=== PATIENT | female | born 1960 | race Caucasian/White ===

== ENCOUNTER 2022-02-14 07:53 | Outpatient (CLI) | payer BC, SELFPAY ==
--- NOTE | 2022-02-14 08:02 | XR_ITS ---
WS: [id number] Right knee, AP and lateral views, 02/14/2022 Clinical Data: RIGHT KNEE PAIN Comparison: None. Findings: There is medial joint compartment narrowing with spurring of the medial femoral condyle and the media l tibial plateau. The posterior right patella shows spurring and there is an anterior superior spur. There are no fractures or dislocations. The soft tissues are normal. XR/XR knee RT 1-2V [id number] Impression: Mild osteoarthritis of the right knee. Kellgren-Peter Classification: grade 2 (minimal): definite osteophytes and p ossible joint space narrowing
== END 2022-02-14 07:54 | disposition home or self-care (01) ==
LOC: RAD 07:58
PROVIDERS: Visit Provider Family Medicine
DX: M17.11 Unilateral primary osteoarthritis, right knee (principal)
CPT/HCPCS: 73560

== ENCOUNTER 2022-03-08 16:36 | Outpatient (CLI) | payer BC, SELFPAY ==
--- NOTE | 2022-03-08 16:50 | MR_ITS ---
WS: [id number] MRI RIGHT KNEE HISTORY: MEDIAL COLLATERAL LIGAMENT INSTABILITY, KNEE PAIN RIGHT COMPARISON: Knee radiograph 02/14/2022 Anterior cruciate ligament: Mild striations increased signal in the proximal ACL. No full-thickness t ear. Posterior cruciate ligament: Intact. Medial collateral ligament: Small amount of fluid surrounds the MCL. There is no tear. Mild displacem ent from the joint line by an extruded meniscus. Posterior lateral corner structures: Intact. Medial menisci: Complex tear posterior horn. There is abnormal signal throughout a large portion of t he meniscus including towards the meniscal root and the free edge. Abnormal signal extends also to th e superior articular surface. Fraying along the surfaces of the meniscus. The meniscus is extruded fr om the joint line and extends superior to the joint line. There is abnormal signal also in the body o f the meniscus. Anterior horn also contains increased signal and is extruded from the joint line. Lateral meniscus: Suspect radial tear mid body of the meniscus. Extensor mechanism: Distal quadriceps tendon and patellar tendons are intact. Fluid and soft tissue: Small amount of fluid in the suprapatellar bursa. There is a moderate-sized Ba ker's cyst. The Cobian's cyst extends inferiorly and also medial to the femoral condyle. Osseous and articular structures: Patellofemoral compartment: Mild narrowing of the joint space. Thinning and fissuring of the cartilag e. No marrow edema. Medial compartment: Severe narrowing of the medial compartment. There is bone upon bone with a menisc al extrusion. Marginal osteophytes. Marrow edema along the anterior tibial plateau. Additional subcho ndral cystic changes along the posterior horn medial meniscus with adjacent chondromalacia. Loss of c artilage in the medial compartment. Lateral compartment: Moderate narrowing lateral compartment. Several small complete cartilage defects are noted along the weightbearing surface of the femoral condyle. There is moderate thinning and fis suring of the cartilage along the tibial plateau. Small marginal osteophytes. No fracture or marrow e faith. MR/MR knee RT wo con* [id number] IMPRESSION: 1. Complex tear posterior horn medial meniscus with involvement of the menisca l root, body and free edge. Meniscus is extruded from the joint line and extend s into the superior recess. 2. Anterior horn medial meniscus with abnormal signal extruded from the joint . 3. Suspect radial tear mid body lateral meniscus. 4. Large Cobian's cyst. 5. Severe narrowing medial compartment with bone upon bone, meniscal tears, os teophytes and near complete loss of cartilage. Additional chondromalacia with s ubchondral edema posterior horn medial femoral condyle. 6. Several small complete cartilage defects involving the weightbearing surfac e lateral femoral condyle with thinning along the lateral tibial plateau. 7. Mild MCL sprain with displacement from the joint line osteophytes and menis giselle extrusion.
== END 2022-03-08 16:37 | disposition home or self-care (01) ==
PROVIDERS: PCP Family Medicine; Visit Provider Family Medicine
DX: M23.8X9 Other internal derangements of unspecified knee (principal); M25.561 Pain in right knee; S83.241A Other tear of medial meniscus, current injury, right knee, initial encounter; X58.XXXA Exposure to other specified factors, initial encounter; M71.21 Synovial cyst of popliteal space [Baker], right knee
CPT/HCPCS: 73721

== ENCOUNTER → 2022-09-19 11:25 | Outpatient (BNVA) | payer BC, SELFPAY | PROVIDERS: PCP Family Medicine; Visit Provider Clinical Nurse Specialist Adult Health | DX: R10.9 Unspecified abdominal pain (principal); R10.11 Right upper quadrant pain; R11.0 Nausea | CPT/HCPCS: 80053; 82150; 83690 ==

== ENCOUNTER → 2022-09-20 07:55 | Outpatient (BNVA) | payer BC, SELFPAY | PROVIDERS: PCP Family Medicine; Visit Provider Clinical Nurse Specialist Adult Health | DX: R10.11 Right upper quadrant pain (principal); R11.0 Nausea | CPT/HCPCS: 80074 ==

== ENCOUNTER 2022-09-30 10:44 | Outpatient (CLI) | payer BC, SELFPAY ==
--- NOTE | 2022-09-30 10:45 | US_ITS ---
WS: [id number] Abdomen ultrasound, 09/30/2022 Clinical Data: RUQ and LUQ pain, worse on right Comparison: None. Findings: The pancreas shows no cyst, pseudocyst or evidence of pancreatitis. The liver shows no cysts, masses or dilated intrahepatic ducts. The portal vein shows normal flow. The gallbladder has no stones or sludge. The wall measures 0.3 cm with no pericholecystic fluid. The common bile duct is 0.5 cm and no intraductal abnormalities are noted. The right kidney is 11.1 cm. No cysts, masses or hydronephrosis is seen. The left kidney is 11.7 cm. No cysts, masses or hydronephrosis is seen. The abdominal aorta is not dilated and the inferior vena cava has normal flow. No vascular abnormalit ies are seen. The spleen measures 8.9 cm and there are no intrasplenic masses or capsular abnormalities. US/US abdomen complete* [id number] Impression: Negative abdomen ultrasound.
== END 2022-09-30 10:45 | disposition home or self-care (01) ==
PROVIDERS: PCP Family Medicine; Visit Provider Surgery
DX: R10.11 Right upper quadrant pain (principal)
CPT/HCPCS: 76700

== ENCOUNTER → 2022-10-01 16:27 | Outpatient (BNVA) | payer BC, SELFPAY | PROVIDERS: PCP Family Medicine; Visit Provider Orthopaedic Surgery | DX: M17.0 Bilateral primary osteoarthritis of knee (principal) | CPT/HCPCS: 73560; 73565 ==

== ENCOUNTER 2022-10-11 06:00 | Outpatient (CLI) | payer BC, SELFPAY | END 2022-10-11 06:01 | LOC: SPT 11-14 07:52 | PROVIDERS: PCP Family Medicine; Visit Provider Podiatrist Foot & Ankle Surgery | DX: Z46.89 Encounter for fitting and adjustment of other specified devices (principal); M25.572 Pain in left ankle and joints of left foot | CPT/HCPCS: 97760; L4361 ==

== ENCOUNTER 2022-10-11 08:40 | Emergency (ER) | payer BC, SELFPAY ==
[2022-10-11 08:50] VITALS: BP 152/92; PULSE 56; RESP 14; TEMP 36.8; O2SAT 98; BMI 35.2
--- NOTE | 2022-10-11 09:06 | XR_ITS ---
WS: [id number] Exam: XR ankle LT min 3V* [id number] Date/Time of Exam: 10/11/2022 9:20 AM Reason For Exam: trauma No acute fracture or dislocation. The ankle mortise is preserved. Unremarkable soft tissues. XR/XR ankle LT min 3V* [id number] IMPRESSION: 1. Negative left ankle.
--- NOTE | 2022-10-11 09:07 | XR_ITS ---
WS: [id number] Exam: XR tibia fibula LT 2V [id number] Date/Time of Exam: 10/11/2022 9:20 AM Reason For Exam: pain No acute fracture or dislocation. Moderately advanced degenerative change at the knee. Normal soft ti ssues. XR/XR tibia fibula LT 2V [id number] IMPRESSION: 1. No fracture or dislocation.
--- NOTE | 2022-10-11 10:02 | PC.NURSE ---
Patient referred to podiatry, taken by ER staff at this time.
[2022-10-11 10:03] VITALS: BP 139/82; PULSE 78; RESP 16; O2SAT 98
--- NOTE | 2022-10-11 10:15 | PC.SOCIAL ---
Addendum entered by June Streeter 10/24/22 11:55: Patient had a follow up appointment scheduled for 10.11.22 with podiatry - patient did attend appointment. Original Note: Podiatry Referral Referral to podiatry sent for scheduling. [facility] podiatry will contact patient with appt. date/time.
--- NOTE | 2022-10-19 06:44 | W.ED.EXTPRO ---
HPI - Extremity Problem General: Chief complaint: Extremity Injury, Lower Stated complaint: left leg pain Time Seen by Provider: 10/11/22 08:43 Source: patient Mode of arrival: ambulatory History of Present Illness: 61-year-old female reports left tibial pain. She tripped in her home yesterday felt and heard a popping sensation she concerned she may have fractured her tibia she has been ambulatory on it she did not actually fall did not strike her head there is no loss consciousness denies any other injuries. MD Complaint: extremity pain Onset (ago): day(s) (1) Pain Consistency: constant Location: left and lower extremity (Tibia) Quality: sharp Radiation: distal Relieving factors: nothing Exacerbating factors: nothing Associated symptoms: Deny chest pain, fever(s) or rash Review of Systems Const: Denies: fever(s), chills, body aches, change in appetite, fatigue or malaise ENMT: Denies: throat pain, ear or mastoid pain, nasal discharge or nasal congestion Card: Denies: chest pain, edema, dyspnea on exertion or orthopnea Resp: Denies: dyspnea, productive cough or non-productive cough GI: Denies: abdominal pain, nausea, vomiting, hematemesis, coffee ground emesis, diarrhea, constipation, bloating, hematochezia or melena : Denies: flank pain, difficulty voiding, dysuria, urinary frequency or urinary urgency Skin/Breast: Denies: rash or pruritus PFSH ED PFSH: Medical History Acute [place] 2010 Degenerative disc disease Endometriosis ovarian cysts Gastritis Hiatal hernia Hyperlipemia Hypertension Mild intermittent asthma Mitral valve prolapse Shingles 2010 Surgical History History of back surgery 2016 History of esophagogastroduodenoscopy (EGD) History of total abdominal hysterectomy and bilateral salpingo-oophorectomy 2004 due to endometriosis. Had her right ovary removed due to ovarian cysts Hx of appendectomy Hx of section Hx of colonoscopy with polypectomy Hx of neck surgery 2014 Family History Mother CAD (coronary artery disease) Social History (Reviewed 10/19/22 @ 06:49 by DARSHANA Augustine Smoking and tobacco status: never smoked Alcohol intake: current Alcohol intake frequency: holidays/special occasions only Physical Exam Const: COMMON NORMALS: no acute distress GENERAL APPEARANCE: cooperative and comfortable ORIENTATION/CONSCIOUSNESS: Yes awake, Yes oriented to person, Yes oriented to place and Yes oriented to time HENMT: COMMON NORMALS: normocephalic, atraumatic and hearing grossly normal bilaterally HEAD & SCALP: normocephalic and atraumatic Resp: COMMON NORMALS: normal respiratory effort, No retractions, No use of accessory muscles and clear to auscultation bilaterally AUSCULTATION: clear to auscultation bilaterally Cardio: COMMON NORMALS: regular rate, regular rhythm and No murmurs present (Cardio) RATE: regular rate RHYTHM: regular rhythm Extremity: COMMON NORMALS: normal to inspection, capillary refill normal, no clubbing, cyanosis or edema, no calf tenderness and no pedal edema Neuro: SENSORIUM/ORIENTATION: Yes oriented to person, Yes oriented to place and Yes oriented to time Skin: COMMON NORMALS: no rashes or lesions noted GENERAL SKIN EXAM: no rashes or lesions noted Course Vital Signs: Vital signs: Vital Signs Temperature 98.2 F 10/11/22 08:50 Pulse Rate 78 10/11/22 10:03 Respiratory Rate 16 10/11/22 10:03 Blood Pressure 139/82 10/11/22 10:03 Pulse Oximetry 98 10/11/22 10:03 Oxygen Delivery Me thod 10/11/22 08:50 MDM - Extremity (Nontraumatic) Medical Decision Making No acute fracture on x-ray. Symptoms likely secondary to sprain and soft tissue injury anti-inflammatories as needed rest ice follow-up with primary care if not improving. On exam it appears more of an ankle injury than JVM. Rest elevate anti-inflammatories follow-up as needed Lab Data Radiology Impressions Ankle X-Ray 10/11/22 09:06 IMPRESSION: 1. Negative left ankle. Tibia/Fibula X-Ray 10/11/22 09:07 IMPRESSION: 1. No fracture or dislocation. Discharge Plan Discharge Patient Disposition: Home Clinical Impression: Ankle sprain and strain Condition: Stable Prescriptions: New diclofenac sodium 75 mg tablet,delayed release (DR/EC) 75 mg PO Q12H PRN (Reason: pain) Qty: 20 0RF No Action atenolol 50 mg tablet 50 mg PO QAM atorvastatin [Lipitor] 20 mg tablet 20 mg PO QAM levothyroxine [Levoxyl] 150 mcg tablet 150 mcg PO QAM ondansetron 4 mg tablet,disintegrating 4 mg PO Q8H PRN (Reason: nausea and vomiting) Qty: 30 0RF (DME) cam boot See Rx Instructions .Route .MEDSUPPLY Qty: 1 0RF Rx Instructions: As directed cyclobenzaprine 10 mg tablet 10 mg PO Q12H 7 Days Qty: 14 0RF Rx Instructions: Take one tablet by mouth every 12 hours as needed for muscle spasms montelukast [Singulair] 10 mg tablet 10 mg PO QAM levalbuterol tartrate 45 mcg/actuation HFA aerosol inhaler 2 inh inhalation Q6H PRN (Reason: Shortness Of Breath) omeprazole 20 mg capsule,delayed release(DR/EC) 20 mg PO QAM multivitamin Tablet 1 tab PO DAILY Advair Diskus 250-50 mcg/dose Blister With Device 1 inh INHALATION BID PRN (Reason: unknown) aspirin 325 mg Tablet 325 mg PO QAM Vitamin B-12 1,000 mcg Tablet 1,000 mcg PO QAM Tylenol Arthritis 650 mg Tablet Extended Release 1,950 mg PO BEDTIME Fiber (calcium polycarbophil) 625 mg Tablet 1,250 mg PO QAM Advil 200 mg Tablet 600 mg PO Q6H PRN (Reason: Pain) Discharge Orders: Discharge ED (Routine); Ordered 10/11/22 Ordered By: Gus Larios Referrals: Christiano Miller MD [Primary Care Provider] - Discharge Diet: Usual diet Discharge Activity: Limit activity as instructed Coding Level of Care Code ED Newspaper Publisher for Chg Joshua
== END 2022-10-11 10:05 | disposition home or self-care (01) ==
PROVIDERS: Emergency Provider Family Medicine; PCP Family Medicine
DX: S93.402A Sprain of unspecified ligament of left ankle, initial encounter (principal); W01.0XXA Fall on same level from slipping, tripping and stumbling without subsequent striking against object, initial encounter
CPT/HCPCS: 73590; 73610; 99283

== ENCOUNTER 2022-10-24 11:53 | Outpatient (CLI) | payer BC, SELFPAY | END 2022-10-24 11:54 | disposition home or self-care (01) | LOC: SPT 11:54 | PROVIDERS: PCP Family Medicine; Visit Provider Podiatrist Foot & Ankle Surgery | DX: Z46.89 Encounter for fitting and adjustment of other specified devices (principal); S93.402D Sprain of unspecified ligament of left ankle, subsequent encounter; X58.XXXD Exposure to other specified factors, subsequent encounter; M25.572 Pain in left ankle and joints of left foot | CPT/HCPCS: 80061; 84443; 97760; L1902 ==

== ENCOUNTER 2022-11-20 14:51 | Outpatient (CLI) | payer BC, SELFPAY ==
--- NOTE | 2022-11-20 15:01 | MM_ITS ---
WS: [email or web address] BILATERAL 3D TOMOSYNTHESIS DIGITAL SCREENING MAMMOGRAPHY WITH CAD CLINICAL INFORMATION: SCREENING HISTORY: Screening mammogram. No current complaints. COMPARISON: 2020 TECHNIQUE: Bilateral CC and MLO views. FINDINGS: Scattered fibroglandular densities bilaterally. No suspicious focal mass, asymmetry, calcifications, or architectural distortion. No evidence of malignancy. A few incidental punctate calcifications. MM/[place] [id number] IMPRESSION: BI-RADS: 2-Benign FOLLOW UP: 1 Year Follow-up Recommend return to annual screening mammography.
== END 2022-11-20 14:52 | disposition home or self-care (01) ==
LOC: RAD 14:54
PROVIDERS: PCP Family Medicine; Visit Provider Clinical Nurse Specialist Adult Health
DX: Z12.31 Encounter for screening mammogram for malignant neoplasm of breast (principal)
CPT/HCPCS: 77063; 77067

== ENCOUNTER 2022-11-29 07:36 | Outpatient (CLI) | payer BC, SELFPAY ==
--- NOTE | 2022-11-29 08:00 | NM_ITS ---
WS: [email or web address] NUCLEAR MEDICINE HIDA SCAN CLINICAL INFORMATION: abdominal pain TECHNIQUE: Following intravenous administration of 7.7 mCi of technetium 99m mebrofenin, images of th e abdomen were obtained over the course of 60 minutes. Next, gallbladder ejection fraction was determ ined by obtaining preprandial and one-hour postprandial images of the gallbladder following oral yao stion of Ensure. COMPARISON: None. FINDINGS: Normal hepatic uptake at 5 minutes. Hepatomegaly. Enlarged RIGHT hepatic lobe. Gallbladder is visuali zed by 10 minutes. No evidence of acute cholecystitis. Normal common bile duct and small bowel activi ty. Gallbladder ejection fraction 80% within normal limits. No evidence of chronic cholecystitis. NM/NM hepatobiliary w phar* [id number] IMPRESSION: 1. No evidence of acute or chronic cholecystitis. 2. Gallbladder ejection fraction 80% within normal limits.
== END 2022-11-29 07:37 | disposition home or self-care (01) ==
LOC: RAD 07:41
PROVIDERS: PCP Family Medicine; Visit Provider Surgery
DX: R10.11 Right upper quadrant pain (principal)
CPT/HCPCS: 78227; A9537

== ENCOUNTER 2022-12-06 08:11 | Day surgery (SDC) | payer BC, SELFPAY ==
[2022-12-03 12:33] VITALS: BMI 34.4
[2022-12-06 08:40] VITALS: BP 175/113; PULSE 87; RESP 18; TEMP 36.1; O2SAT 96
[2022-12-06] MEDS: sodium chloride 0.9% 1,000 ML 30 ML IV (08:49)
--- NOTE | 2022-12-06 08:59 | ANES.PREANE2 ---
Pre-Anesthetic Assessment Height/Weight: Height 1.7 m Weight 99.79 kg Temp Pulse Resp BP Pulse Ox O2 Del Method 97.0 F L 87 18 175/113 96 12/06/22 08:40 12/06/22 08:40 12/06/22 08:40 12/06/22 08:40 12/06/22 08:40 12/06/22 08:40 Preop Diagnosis: h/o polyps abdominal pain. Operation Date: 12/06/22 09:45 Proposed Procedures p 34654 egd, 22605 colon Z86.010,R10.9(Not Applicable) - Reggie Martinez DO s Colonoscopy(Not Applicable) - Reggie Martinez DO Familial anesthetic complications: patient reports propofol causing N/V H/A. Discussed sedation alternatives with patient patient reports she previously recieved propofol with antiemetics and seemed to do okay. Last intake: Intake Last Liquid Date 12/05/22 Last Liquid Time 17:00 Last Solid Date 12/04/22 Last Solid Time 17:00 Social Alcohol (1-2x month) and No tobacco Airway Submandibular: within normal limits Cervical ROM: within normal limits Mallampati: Class II Dentition: full Pulmonary Asthma CV/HEM Hypertension and Myocardial Infarction None reported Hepatic None reported GI Gastroesophageal Reflux Disease Metabolic Hyperlipidemia, Morbid Obesity and Thyroid Disease Musc/skel Weakness (cane) Neuropsych None reported Anesthetic Plan ASA status: 3 Anesthesia: MAC Medications/Allergies Home Medications Medication Instructions Recorded Confirmed Last Taken Type atenolol 50 mg tablet 50 mg PO QAM 04/16/22 12/06/22 11/28/22 History levothyroxine 150 mcg tablet 150 mcg PO QAM 04/16/22 12/06/22 12/05/22 History (Levoxyl) montelukast 10 mg tablet 10 mg PO QAM 09/19/22 12/06/22 12/05/22 History (Singulair) levalbuterol tartrate 45 2 inh inhalation Q6H PRN Shortness 09/30/22 12/06/22 12/05/22 History mcg/actuation aerosol inhaler Of Breath omeprazole 20 mg capsule,delayed 20 mg PO QAM 09/30/22 12/06/22 12/04/22 History release ondansetron 4 mg disintegrating 4 mg PO Q8H PRN nausea and 10/04/22 12/06/22 Unknown Rx tablet vomiting #30 tabs acetaminophen 650 mg 1,950 mg PO BEDTIME 10/11/22 12/06/22 12/05/22 History tablet,extended release aspirin 325 mg tablet 325 mg PO QAM 10/11/22 12/06/22 11/29/22 History calcium polycarbophil 625 mg 1,250 mg PO QAM 10/11/22 12/06/22 12/04/22 History tablet (Fiber (calcium polycarbophil)) cam boot #1 ea 10/11/22 11/12/22 Unknown Rx cyanocobalamin (vitamin B-12) 1,000 mcg PO QAM 10/11/22 12/06/22 12/04/22 History 1,000 mcg tablet (Vitamin B-12) diclofenac sodium 75 mg 75 mg PO Q12H PRN pain #20 tabs 10/11/22 12/06/22 12/04/22 Rx tablet,delayed release fluticasone 250 mcg-salmeterol 50 1 inh inhalation BID PRN unknown 10/11/22 12/06/22 Unknown History mcg/dose blistr powdr for inhalation (Advair Diskus) ibuprofen 200 mg tablet (Advil) 600 mg PO Q6H PRN Pain 10/11/22 12/06/22 12/05/22 History multivitamin 1 tab PO DAILY 10/11/22 12/06/22 12/04/22 History ASO brace #1 ea 10/24/22 11/12/22 Unknown Rx cyclobenzaprine 10 mg tablet 10 mg PO Q12H 14 days #28 tabs 11/12/22 12/06/22 12/05/22 Rx atorvastatin 20 mg tablet See Rx Instructions .Route 12/02/22 12/06/22 12/05/22 Rx .COMPLEX #90 tabs Allergies Allergy/AdvReac Type Severity Reaction Status Date / Time soy Allergy Unknown Unknown Verified 12/06/22 08:45 egg Allergy Unknown Verified 12/06/22 08:45 Current Medications Generic Name Dose Route Start Last Admin Trade Name Freq PRN Reason Stop Dose Admin Sodium Chloride 1,000 mls @ 30 mls/hr 12/06/22 08:45 12/06/22 08:49 Sodium Chloride 0.9% IV 12/07/22 08:44 30 mls/hr .Q24H ADAMARIS Administration PFSH Anesthesia Medical History Acute [place] 2010 Degenerative disc disease Endometriosis ovarian cysts Gastritis Hiatal hernia History of colon polyps Hyperlipemia Hypertension Hypothyroid Mild intermittent asthma Mitral valve prolapse Shingles 2010 Surgical History History of back surgery 2016 History of esophagogastroduodenoscopy (EGD) History of total abdominal hysterectomy and bilateral salpingo-oophorectomy 2004 due to endometriosis. Had her right ovary removed due to ovarian cysts Hx of appendectomy Hx of section Hx of colonoscopy with polypectomy Hx of neck surgery 2014 Family History Mother CAD (coronary artery disease) Social History Smoking and tobacco status: never smoked Alcohol intake: current Alcohol intake frequency: holidays/special occasions only Data Anesthesia Cardiac Studies: No Data to Display
--- NOTE | 2022-12-06 09:44 | PM.HP ---
Providers/Chief Complaint Primary Care Provider: Christiano Miller MD Chief Complaint: personal history of colonic polyps History of Present Illness Sharon Arenas is a 62 year old female here for EGD and colonoscopy Medications/Allergies Home Medications Medication Instructions Recorded Confirmed Last Taken Type atenolol 50 mg tablet 50 mg PO QAM 04/16/22 12/06/22 11/28/22 History levothyroxine 150 mcg tablet 150 mcg PO QAM 04/16/22 12/06/22 12/05/22 History (Levoxyl) montelukast 10 mg tablet 10 mg PO QAM 09/19/22 12/06/22 12/05/22 History (Singulair) levalbuterol tartrate 45 2 inh inhalation Q6H PRN Shortness 09/30/22 12/06/22 12/05/22 History mcg/actuation aerosol inhaler Of Breath omeprazole 20 mg capsule,delayed 20 mg PO QAM 09/30/22 12/06/22 12/04/22 History release ondansetron 4 mg disintegrating 4 mg PO Q8H PRN nausea and 10/04/22 12/06/22 Unknown Rx tablet vomiting #30 tabs acetaminophen 650 mg 1,950 mg PO BEDTIME 10/11/22 12/06/22 12/05/22 History tablet,extended release aspirin 325 mg tablet 325 mg PO QAM 10/11/22 12/06/22 11/29/22 History calcium polycarbophil 625 mg 1,250 mg PO QAM 10/11/22 12/06/22 12/04/22 History tablet (Fiber (calcium polycarbophil)) cam boot #1 ea 10/11/22 11/12/22 Unknown Rx cyanocobalamin (vitamin B-12) 1,000 mcg PO QAM 10/11/22 12/06/22 12/04/22 History 1,000 mcg tablet (Vitamin B-12) diclofenac sodium 75 mg 75 mg PO Q12H PRN pain #20 tabs 10/11/22 12/06/22 12/04/22 Rx tablet,delayed release fluticasone 250 mcg-salmeterol 50 1 inh inhalation BID PRN unknown 10/11/22 12/06/22 Unknown History mcg/dose blistr powdr for inhalation (Advair Diskus) ibuprofen 200 mg tablet (Advil) 600 mg PO Q6H PRN Pain 10/11/22 12/06/22 12/05/22 History multivitamin 1 tab PO DAILY 10/11/22 12/06/22 12/04/22 History ASO brace #1 ea 10/24/22 11/12/22 Unknown Rx cyclobenzaprine 10 mg tablet 10 mg PO Q12H 14 days #28 tabs 11/12/22 12/06/22 12/05/22 Rx atorvastatin 20 mg tablet See Rx Instructions .Route 12/02/22 12/06/22 12/05/22 Rx .COMPLEX #90 tabs Allergies Allergy/AdvReac Type Severity Reaction Status Date / Time soy Allergy Unknown Unknown Verified 12/06/22 08:45 egg Allergy Unknown Verified 12/06/22 08:45 PFSH Acute PFSH: Medical History Acute [place] 2010 Degenerative disc disease Endometriosis ovarian cysts Gastritis Hiatal hernia History of colon polyps Hyperlipemia Hypertension Hypothyroid Mild intermittent asthma Mitral valve prolapse Shingles 2010 Surgical History History of back surgery 2016 History of esophagogastroduodenoscopy (EGD) History of total abdominal hysterectomy and bilateral salpingo-oophorectomy 2004 due to endometriosis. Had her right ovary removed due to ovarian cysts Hx of appendectomy Hx of section Hx of colonoscopy with polypectomy Hx of neck surgery 2014 Family History Mother CAD (coronary artery disease) Social History Smoking and tobacco status: never smoked Alcohol intake: current Alcohol intake frequency: holidays/special occasions only Vitals/I&O/Wt Last Vital Signs Temp 97.0 F L 12/06/22 08:40 Pulse 87 12/06/22 08:40 Resp 18 12/06/22 08:40 BP 175/113 12/06/22 08:40 Pulse Ox 96 12/06/22 08:40 O2 Del Method 12/06/22 08:40 A&P Assessment and plan (1) History of colon polyps: (2) GERD (gastroesophageal reflux disease): Plan EGD and colonoscopy Attestations Medical Necessity Statement*: Home Coding Level of Care Code Acute Code for Chg Fwd Diagnoses History of colon polyps Z86.010 GERD (gastroesophageal reflux disease) K21.9
[2022-12-06 10:15] VITALS: BP 123/70; PULSE 64; RESP 14; TEMP 36.4; O2SAT 95
[2022-12-06 10:30] VITALS: BP 133/81; PULSE 58; RESP 16; O2SAT 95
--- NOTE | 2022-12-06 19:40 | ANE.PACU2 ---
Inpatient post-anesthesia follow up: Airway intact: Yes Vital signs: Temperature 97.5 F Pulse Rate 58 Respiratory Rate 16 Blood Pressure 133/81 Pulse Oximetry 95 Oxygen Delivery Me thod Room Air Oxygen Flow Rate Fraction of Inspir ed Oxygen Hydration adequate: Yes Nausea and vomiting: No Pain level: 1 Mental status: Baseline
== END 2022-12-06 10:52 | disposition home or self-care (01) ==
PROVIDERS: PCP Family Medicine; Visit Provider Surgery
PROC: 0DJ08ZZ Inspection of Upper Intestinal Tract, Via Natural or Artificial Opening Endoscopic (ICD-10-PCS; CPT 43235; principal; 2022-12-06 09:45)
PROC: 0DJD8ZZ Inspection of Lower Intestinal Tract, Via Natural or Artificial Opening Endoscopic (ICD-10-PCS; CPT 45378; 2022-12-06 09:45)
DX: Z86.010 Personal history of colon polyps (principal); K21.9 Gastro-esophageal reflux disease without esophagitis; K29.50 Unspecified chronic gastritis without bleeding; B96.81 Helicobacter pylori [H. pylori] as the cause of diseases classified elsewhere; J45.909 Unspecified asthma, uncomplicated; E78.5 Hyperlipidemia, unspecified; E66.01 Morbid (severe) obesity due to excess calories; Z68.34 Body mass index [BMI] 34.0-34.9, adult; I25.2 Old myocardial infarction; I10 Essential (primary) hypertension; E03.9 Hypothyroidism, unspecified
CPT/HCPCS: 43239; 45378; 88305; 88342; J1100; J2250; J2405; J2704; J7030

== ENCOUNTER 2023-01-02 13:25 | Outpatient (CLI) | payer BC, SELFPAY ==
--- NOTE | 2023-01-02 14:30 | MR_ITS ---
WS: [id number] MRI LEFT LOWER EXTREMITY with and without CONTRAST. COMPARISON: Radiograph 10/11/2022 Multiplanar, multisequence imaging is performed with and without contrast. MultiHance 20 mL IV. MRI is obtained from the knee to the distal tibial and fibular diaphyses. The ankle with oblique imag e is a separate exam. Marker is placed in the area of pain which is near the proximal to mid posterior lower extremity. There is no soft tissue abnormality noted in the region of the marker which is indicative of the medi al head of the gastrocnemius. Normal medial and lateral heads of the gastrocnemius. There is no edema or muscle atrophy of any significance. No fluid is noted. Gastrocnemius tendon is only very minimall y included on this examination in the axial image. The soleus is tapering normally. The distal soleus just anterior to the Achilles tendon does contain increased signal but this is only seen on the sagi ttal and coronal STIR sequence as axial images have not been performed in this region. There is no te ar of the gastrocnemius muscle. No mass or abnormal enhancement. No tumor along the nerves of the low er extremity. MR/MR lower leg LT wo/w con [id number] IMPRESSION: 1. Normal appearance of the medial and lateral heads of the gastrocnemius musc le. 2. Only a small portion of the gastrocnemius tendon is included in this examin ation. 3. Seen only on the sagittal STIR sequences is increased signal in the soleus muscle just anterior to the Achilles tendon. This area should be included on e ankle MRI to follow. Findings are very suspicious for soleus tendon and muscl e injury. 4. No muscle atrophy or edema.
[2023-01-02] MEDS: gadobenate dimeglumine 20 mL vial IV (14:50)
== END 2023-01-02 13:26 | disposition home or self-care (01) ==
PROVIDERS: PCP Family Medicine; Visit Provider Podiatrist Foot & Ankle Surgery
DX: S89.92XA Unspecified injury of left lower leg, initial encounter (principal); X58.XXXA Exposure to other specified factors, initial encounter
CPT/HCPCS: 73720; A9577

== ENCOUNTER 2023-01-10 08:46 | Outpatient (CLI) | payer BC, SELFPAY ==
--- NOTE | 2023-01-10 09:00 | CT_ITS ---
WS: [id number] CT LEFT KNEE, NONCONTRAST TECHNIQUE: Noncontrast CT of the LEFT knee to include the LEFT hip and ankle. [facility] CLINICAL INFORMATION: arthritis to the knee COMPARISON: None. DLP: 966.[address] scans at [facility] use at least one of these dose optimization techniques: automated e xposure control; mA and/or kV adjustment per patient size (includes targeted exams where dose is matc hed to clinical indication); or iterative reconstruction. FINDINGS: Moderate to advanced degenerative arthritis LEFT knee worse medial joint compartment. Hypertrophic ch anges along the joint line. Hypertrophic patella. Tiny joint effusion. Mild degenerative arthritis patrick th hips. CT/CT knee LT ELLIE IMPRESSION: Images obtained for preoperative purposes.
== END 2023-01-10 08:47 | disposition home or self-care (01) ==
PROVIDERS: PCP Family Medicine; Visit Provider Orthopaedic Surgery
DX: M17.12 Unilateral primary osteoarthritis, left knee (principal)
CPT/HCPCS: 73700

== ENCOUNTER 2023-02-03 09:41 | Observation (INO) | payer BC, SELFPAY ==
[2023-01-24 10:22] VITALS: BMI 34.4
[2023-01-24 10:58] LABS: Basophils # 0.1 10^3/uL (0.0-0.1); Basophils % 1.2 %; Eosinophils # 0.2 10^3/uL (0.0-0.8); Eosinophils % 3.2 %; Hematocrit 39.1 % (37.0-47.0); Hemoglobin 12.8 g/dL (11.5-15.3); Lymphocytes # 2.7 10^3/uL (0.8-4.8); Lymphocytes % 47.1 %; Mean Corpuscular HGB Conc 32.7 g/dL (30.0-36.0); Mean Corpuscular Hemoglobin 29.9 pg (28.0-34.0); Mean Corpuscular Volume 91.4 fl (81-99); Monocytes # 0.3 10^3/uL (0.2-0.9); Monocytes % 5.1 %; Neutrophils # 2.46 10^3/uL (1.8-7.7); Nucleated Red Blood Cells % 0 %; Platelet Count 316 10^3/cmm (130-400); Red Blood Count 4.28 10^6/uL (4.1-5.3); White Blood Count 5.7 10^3/uL (4.0-10.0)
[2023-01-24 11:15] LABS: Anion Gap 15.1 (5-19); Blood Urea Nitrogen 8 mg/dL (8-23); Calcium 9.4 mg/dL (8.5-10.5); Carbon Dioxide 25 mmol/L (22-29); Chloride 106 mmol/L (98-107); Glomerular Filtration Rate 85.1 mL/min (90-130); Glucose 118 mg/dL (65-115); Osmolality Calculated 293 mOsm/kg (285-295); Potassium 4.1 mmol/L (3.5-5.1); Sodium 142 mmol/L (136-145)
[2023-01-24 12:12] LABS: Bilirubin Urine Neg (Negative); Blood Urine Neg (Negative); Glucose Urine UA Norm (Normal); Ketones Urine Negative (Negative); Leukocyte Esterase Urine Negative (Negative); Nitrate Urine Negative (Negative); Protein Urine Neg (Negative); Specific Gravity, Urine 1.005 (1.005-1.030); Urine Appearance Clear (CLEAR); Urine Color Yellow (Yellow); Urobilinogen Urine Neg (Negative); pH Urine 7 (5-7)
[2023-01-24 12:13] LABS: Add Urine Culture? No
--- NOTE | 2023-01-24 13:48 | P.ANESASSM_ITS ---
Pre-Anesthetic Assessment Height/Weight: Height 1.7 m Weight 99.79 kg Preop Diagnosis: h/o polyps abdominal pain. Operation Date: 02/03/23 07:00 Proposed Procedures p left totalknee arthoplasty: 72085,M17.12(Left) - Narayan Strauss MD Familial anesthetic complications: egg medications cause nausea? Was Beta Oskar taken within 24 hours: Yes Was Clonidine taken within 24 hours: N/A Social No alcohol and No tobacco Exam alert, oriented x 3, clear to auscultation bilaterally and regular rate & rhythm Airway Submandibular: within normal limits Cervical ROM: within normal limits Mallampati: Class II Dentition: full CV/HEM Coronary Artery Disease, Hypertension and Myocardial Infarction GI Gastroesophageal Reflux Disease Metabolic Morbid Obesity and Thyroid Disease Musc/skel Lower Back Pain and Osteoarthritis/DJD h/o spine surgery Anesthetic Plan ASA status: 3 Anesthesia: Regional (specify below) (SAB with adductor blk) Medications/Allergies Home Medications Medication Instructions Recorded Confirmed Last Taken Type atenolol 50 mg tablet 50 mg PO QAM 04/16/22 01/24/23 01/24/23 History levothyroxine 150 mcg tablet 150 mcg PO QAM 04/16/22 01/24/23 01/24/23 History (Levoxyl) montelukast 10 mg tablet 10 mg PO QAM 09/19/22 01/24/23 01/24/23 History (Singulair) levalbuterol tartrate 45 2 inh inhalation Q6H PRN Shortness 09/30/22 01/24/23 01/24/23 History mcg/actuation aerosol inhaler Of Breath omeprazole 20 mg capsule,delayed 20 mg PO QAM 09/30/22 01/24/23 01/24/23 History release ondansetron 4 mg disintegrating 4 mg PO Q8H PRN nausea and 10/04/22 01/24/23 Unknown Rx tablet vomiting #30 tabs acetaminophen 650 mg 1,950 mg PO BEDTIME 10/11/22 01/24/23 01/24/23 History tablet,extended release calcium polycarbophil 625 mg 1,250 mg PO QAM 10/11/22 01/24/23 01/24/23 History tablet (Fiber (calcium polycarbophil)) cam boot #1 ea 10/11/22 12/19/22 Unknown Rx cyanocobalamin (vitamin B-12) 1,000 mcg PO QAM 10/11/22 01/24/23 01/24/23 History 1,000 mcg tablet (Vitamin B-12) diclofenac sodium 75 mg 75 mg PO Q12H PRN pain #20 tabs 10/11/22 01/24/23 01/24/23 Rx tablet,delayed release fluticasone 250 mcg-salmeterol 50 1 inh inhalation BID PRN unknown 10/11/22 01/24/23 Unknown History mcg/dose blistr powdr for inhalation (Advair Diskus) multivitamin 1 tab PO DAILY 10/11/22 01/24/23 01/24/23 History ASO brace #1 ea 10/24/22 12/19/22 Unknown Rx cyclobenzaprine 10 mg tablet 10 mg PO Q12H 14 days #28 tabs 11/12/22 01/24/23 01/24/23 Rx atorvastatin 20 mg tablet 20 mg PO DAILY 01/24/23 01/24/23 01/24/23 History Allergies Allergy/AdvReac Type Severity Reaction Status Date / Time soy Allergy Unknown Unknown Verified 01/24/23 10:13 egg Allergy Unknown Verified 01/24/23 10:13 FOR[facility]LY [facility] Anesthesia Medical History Acute [place] 2010 Degenerative disc disease Endometriosis ovarian cysts Gastritis Hiatal hernia History of colon polyps Hyperlipemia Hypertension Hypothyroid Mild intermittent asthma Mitral valve prolapse Shingles 2010 Surgical History History of back surgery 2016 History of esophagogastroduodenoscopy (EGD) History of total abdominal hysterectomy and bilateral salpingo-oophorectomy 2004 due to endometriosis. Had her right ovary removed due to ovarian cysts Hx of appendectomy Hx of section Hx of colonoscopy with polypectomy Hx of neck surgery 2014 Family History Mother CAD (coronary artery disease) Social History Smoking and tobacco status: never smoked Alcohol intake: current Alcohol intake frequency: holidays/special occasions only Data Anesthesia 01/24/23 10:35 01/24/23 10:35 Short CBC 01/24/23 Range/Units 10:35 WBC 5.7 (4.0-10.0) 10^3/uL Hgb 12.8 (11.5-15.3) g/dL Hct 39.1 (37.0-47.0) % MCV 91.4 (81-99) fl Plt Count 316 (130-400) 10^3/cmm Neut % (Auto) 43.0 % Neut # (Auto) 2.46 (1.8-7.7) 10^3/uL BMP 01/24/23 10:35 Sodium 142 Potassium 4.1 Chloride 106 Carbon Dioxide 25 BUN 8 Creatinine 0.7 Glucose 118 H Calcium 9.4 Urine 01/24/23 Range/Units 10:35 Urine Color Yellow (Yellow) Urine Appearance Clear (CLEAR) Urine pH 7 (5-7) Ur Specific [place] 1.005 (1.005-1.030) Urine Protein Neg (Negative) Urine Glucose (UA) Norm (Normal) Urine Ketones Negative (Negative) Urine Nitrate Negative (Negative) Urine Bilirubin Neg (Negative) Ur Leukocyte Esterase Negative (Negative) Urine RBC None (0-2) /hpf Urine WBC None (0-5) /hpf Cardiac Studies: No Data to Display
[2023-02-03] VITALS (25 sets, daily range): BP systolic 102–159; BP diastolic 57–84; PULSE 51–83; RESP 12–18; TEMP 36.1–36.8; O2SAT 90–99
[2023-02-03] MEDS: sodium chloride 0.9% 1,000 ML 30 ML IV (06:16)
[2023-02-03] MEDS: oxyCODONE 20 mg ER (12 HR) Tablet PO (06:18)
[2023-02-03] MEDS: gabapentin 300 mg Capsule PO ×2 (06:19→20:41)
[2023-02-03] MEDS: CELEcoxib 200 mg Capsule 400 MG PO (06:19)
[2023-02-03] MEDS: acetaminophen 500 mg Tablet 1000 MG PO ×3 (06:19→21:35)
[2023-02-03] MEDS: scopolamine 1.5 Patch 1 PATCH TRANSDERMA (06:49)
--- NOTE | 2023-02-03 07:06 | W.PM.OPSFHP ---
Same Day Surgery H&P Indication for Procedure/HPI DATE OF PROCEDURE: February 03, 2023 CHIEF COMPLAINT/INDICATIONFOR SURGICAL PROCEDURE: Osteoarthritis left knee here for total knee arthroplasty PREOP DIAGNOSIS: Osteoarthritis left knee PLANNED PROCEDURE: Operation Date: 02/03/23 07:00 Proposed Procedures p left total Marcin knee arthoplasty: 04384,M17.12(Left) - Narayan Strauss MD 62-year-old here for elective left total knee arthroplasty. describes activity related pain in both knees the left more so than the right.? She states she has reached a point now where she can hardly ambulate out of the house.? She states he uses a cane and can maybe make it to her mailbox and back but no further.? He describes difficulty with gait due to her inability to straighten her knees.? She states its been aggravating her left leg and she has now pain in her Achilles.? She has seen podiatry for this.? We have measured at this point with [id number] and prescription anti-inflammatories, meloxicam.? She has had a number of injections and last cortisone injections.DOLI:10/01/22 She states that the last injection lasted her for about 6 weeks. She states that she is ready to proceed with total knee arthoplasty. She states her left knee is worse than the right knee. Medications/Allergies* Home Medications Medication Instructions Recorded Confirmed Type atenolol 50 mg tablet 50 mg PO QAM 04/16/22 01/28/23 History levothyroxine 150 mcg tablet 150 mcg PO QAM 04/16/22 01/28/23 History (Levoxyl) montelukast 10 mg tablet 10 mg PO QAM 09/19/22 01/28/23 History (Singulair) levalbuterol tartrate 45 2 inh inhalation Q6H PRN Shortness 09/30/22 01/28/23 History mcg/actuation aerosol inhaler Of Breath acetaminophen 650 mg 1,950 mg PO BEDTIME 10/11/22 01/28/23 History tablet,extended release calcium polycarbophil 625 mg 1,250 mg PO QAM 10/11/22 01/28/23 History tablet (Fiber (calcium polycarbophil)) cyanocobalamin (vitamin B-12) 1,000 mcg PO QAM 10/11/22 01/28/23 History 1,000 mcg tablet (Vitamin B-12) fluticasone 250 mcg-salmeterol 50 1 inh inhalation BID PRN unknown 10/11/22 01/28/23 History mcg/dose blistr powdr for inhalation (Advair Diskus) multivitamin 1 tab PO DAILY 10/11/22 01/28/23 History atorvastatin 20 mg tablet 20 mg PO DAILY 01/24/23 01/28/23 History Allergies/Adverse Reactions Allergy/AdvReac Type Severity Reaction Status Date / Time soy Allergy Unknown Unknown Verified 01/28/23 15:30 egg Allergy Unknown Verified 01/28/23 15:30 Current Medications: Generic Name Dose Route Start Last Admin Trade Name Freq PRN Reason Stop Dose Admin Sodium Chloride 1,000 mls @ 30 mls/hr 02/03/23 06:00 02/03/23 06:16 Sodium Chloride 0.9% IV 02/04/23 05:59 30 mls/hr .Q24H ADAMARIS Administration Pertinent History/Comorbid Conditions* Medical History (Updated 12/20/22 @ 15:49 by Reggie Martinez DO) Acute [place] 2010 Degenerative disc disease Endometriosis ovarian cysts Gastritis Hiatal hernia History of colon polyps Hyperlipemia Hypertension Hypothyroid Mild intermittent asthma Mitral valve prolapse Shingles 2010 Surgical History (Updated 10/04/22 @ 10:29 by Kristopher Rojas NP) History of back surgery 2016 History of esophagogastroduodenoscopy (EGD) History of total abdominal hysterectomy and bilateral salpingo-oophorectomy 2005 due to endometriosis. Had her right ovary removed due to ovarian cysts Hx of appendectomy Hx of section Hx of colonoscopy with polypectomy Hx of neck surgery 2014 Family History (Updated 09/19/22 @ 11:45 by Kristopher Rojas NP) CAD (coronary artery disease) Mother Social History Smoking and tobacco status: never smoked Alcohol intake: current Alcohol intake frequency: holidays/special occasions only Pertinent Exam Findings alert, oriented x 3, clear to auscultation bilaterally, regular rate & rhythm and operative site marked Left Knee She has tenderness over medial joint line She has a diffuse swelling about the knee Motion is from 10 to 100 degrees Patella tracks well Collateral ligaments are stable Skin is healthy and free of breakdown Palpable left dorsalis pedis pulse Sensation intact left foot ? Recommendations Surgery/Procedure today Coding Level of Care Code Acute Code for Chg Fwd
[2023-02-03] MEDS: ceFAZolin 2,000 MG in sodium chloride 0.9% (plus) 50 ML 100 MG IV ×3 (07:09→22:30)
[2023-02-03] MEDS: tranexamic acid 1,000 mg/10mL SDV 1000 MG IV (07:30)
--- NOTE | 2023-02-03 07:34 | P.ANESUD_ITS ---
Pre-Anesthetic Update Pre-Anesthetic Assessment: Date of Surgery/Procedure: 02/03/23 Preop [place] gnosis: Osteoarthritis left knee Proposed Procedure: Operation Date: 02/03/23 07:00 Proposed Procedures p left total Marcin knee arthoplasty: 11051,M17.12(Left) - Narayan Strauss MD Any changes to Pre-Anesthetic Assessment?: No Last Intake: Intake Last Liquid Date 02/02/23 Last Liquid Time 21:30 Last Solid Date 02/02/23 Last Solid Time 21:30 Vitals: Temperature 97 F L 02/03/23 06:23 Temperature Source Temporal Artery S can 02/03/23 06:23 Pulse Rate 53 L 02/03/23 06:23 Respiratory Rate 18 02/03/23 06:23 Respiratory Patter n 02/03/23 06:18 Blood Pressure 159/84 02/03/23 06:23 Blood Pressure Maribel n 109 02/03/23 06:23 Pulse Oximetry 96 02/03/23 06:23 Oxygen Delivery Me thod 02/03/23 06:26 Exam: Pre-Anes Outpt Exam: alert, oriented x 3, clear to auscultation bilaterally and regular rate & rhythm Cardiac Studies: No Data to Display Anesthesia Procedures Nerve Block: Nerve Block 1: Main Anesthesia: spinal anesthesia block Time Out Performed: Yes Consent: requested by attending/covering physician, from patient, risks and benefits reviewed and patient agrees to proceed Nerve block location: adductor canal (left) Anesthesia monitors applied: pulse oximetry, EKG, BP cuff and oxygen Nerve block position: supine Anesthetic Used: ropivicaine 0.5% Amount of anesthesia used (mL): 20 Ultrasound used to: recognize landmarks Nerve Stimulator Used?: No Interscalene/Femoral BLK: 4 stimuplex 21 g needle used for position and inplane approach Injection: neg aspiration of heme Patient Tolerated Procedure: well Complications: none
[2023-02-03] MEDS: ketorolac 30 mg/mL INJ XX (07:57)
[2023-02-03] MEDS: EPINEPHrine 1 mg/mL INJ XX (07:57)
[2023-02-03] MEDS: tranexamic acid 1,000 mg/10mL SDV 1000 MG XX (07:57)
[2023-02-03] MEDS: sodium chloride 0.9% 100 mL Bag XX (07:59)
--- NOTE | 2023-02-03 09:02 | PM.OP ---
Operative Report Date of procedure: February 03, 2023 Pre-op diagnosis: Preop Diagnosis Osteoarthritis left knee Post-op diagnosis: same Post-op diagnosis: Same Post-op findings: Same Procedure done: Left total knee arthroplasty Implants: [place] Triathalon total knee arthroplasty components were used includin) Size 5 triathalon cruciate retaining femoral component 2) Size 6 Tritanium tibial component 3) Size 6/9 mm thickness CS tibial bearing insert Pathology: none sent Surgeon: Narayan Strauss Health Unit Coordinator: Parvez Alvarado Health Unit Coordinator: The nurse practitioner the nurse practitioner assisted with critical portions of the case including positioning, draping, exposure, component implantation, closure and dressing application and is present through the entirety of the case. Anesthesia: Nerve Block (Spinal, adductor canal block) Estimated blood loss (mL): 100 Findings: The patient eburnated bone over the medial femoral condyle and medial tibial plateau. There was modest wear of the medial lateral facet but no exposed subchondral bone was noted and the patella tracked well with the trochlea Condition: stable Disposition: PACU Procedure: The patient was taken to the operating room. Patient was given 1 g of tranexamic acid and 2 g of Ancef. The above anesthesia provided by the anesthesia service. A timeout was performed. The patient was prepped and draped in the usual fashion with the lower extremity exposed. A anterior incision was made, midline, from a point proximal to the patella to the distal tibial tubercle. The knee was entered through a medial parapatellar approach. The patella could be displaced laterally and the knee flexed. The patellar fat pad was resected to provide better visibility. Retractors were placed medially and laterally adjacent to the tibial plateau. At a point approximately 8 cm above the patella, 2 small incisions were made with a scalpel blade and 2 long threaded pins were placed into the anterior medial femur engaging both cortices. The femoral arrays were placed over these pins and secured. At a point 8 cm distal to the tibial tubercle. 2 shorter bicortical threaded pins were placed across the anterior medial tibia and the tibial arrays placed. A checkpoint was made just proximal and medial to the medial femoral condyle and just medial to the tibial plateau. Small osteotomes were placed in the joint in both flexion and extension to determine ligamentous laxity. Tibia was cut an additional 1 degree of varus and the femur externally rotated 2 degrees to provide 19 mm flexion gaps in flexion and extension. The ELLIE robot was then introduced to the field and the femur and tibia cut in accordance with our plan. he [employer] Fastseal was then used to provide hemostasis, particularly about the posterior capsule. A trial with the above components provided excellent stability and full range of motion. The femur was then prepared for the femoral pegs of the component in the tibia for the tibial component. The femur and tibia were then press-fit into place. An osteotome was used to remove the lateral 8 mm of the patella to minimize chances of later impingement. A neurectomy was accomplished circumferentially about the patella with electrocautery and lateral osteophytes removed. Surfaces were cleaned with a gentamicin solution. The femur and tibia were then press-fit into place. The posterior capsule and collateral ligaments were then injected with a solution of 100 mL of 0.2% ropivacaine, 1 mL of a 1:1000 epinephrine solution, 30 mg of Toradol, and 1 g of tranexamic acid. Final polyethylene component was then snapped into place into the tibia. The extensor retinaculum was closed with a running 1 Stratafix interrupted 1 Ethibond. The subcutaneous tissues were closed with 2-0 Vicryl and the skin was closed with a running 4-0 Stratafix. The wound was covered with a Dermabond Prineo dressing. It was covered with 4xrs and a compressive Tubigauze was applied. The patient was taken to recovery room in stable condition.
--- NOTE | 2023-02-03 09:12 | XR_ITS ---
WS: [id number] [id number] REASON FOR EXAM: Left Total knee arthroplasty FINDINGS: Left knee arthroplasty. Components of the arthroplasty are in proper position and alignment. No bone abnormality. XR/[place] [id number] IMPRESSION: Left knee arthroplasty without abnormality.
[2023-02-03] MEDS: sodium chloride 0.9% 1,000 ML 100 ML IV ×2 (10:19→20:40)
[2023-02-03] MEDS: oxyCODONE 5 mg IR Tab/Cap PO ×3 (10:41→20:41)
[2023-02-03] MEDS: cyclobenzaprine 10 mg Tablet PO ×2 (10:42→21:35)
[2023-02-03] MEDS: morphine 4 mg/mL SDV 1 mL 2 MG IVP ×5 (10:52→23:40)
[2023-02-03] MEDS: ondansetron 2 mg/ML SDV 2 mL 4 MG IVP (11:54)
[2023-02-03] MEDS: metoclopramide 5 mg/mL SDV 2 mL 10 MG IV (14:17)
--- NOTE | 2023-02-03 16:53 | ANE.PACU2 ---
Inpatient post-anesthesia follow up: Airway intact: Yes Vital signs: Temperature 97.5 F Pulse Rate 55 Respiratory Rate 15 Blood Pressure 127/68 Pulse Oximetry 94 Oxygen Delivery Me thod Room Air Oxygen Flow Rate 6 Fraction of Inspir ed Oxygen Hydration adequate: Yes Nausea and vomiting: No Pain level: 2 Mental status: Baseline
[2023-02-03] MEDS: CELEcoxib 200 mg Capsule PO (18:06)
[2023-02-03] MEDS: sennosides-docusate Tablet 2 TAB PO (18:06)
[2023-02-03] MEDS: budesonide 0.5 mg/2 mL Neb INHALATION (21:09)
[2023-02-03] MEDS: levalbuterol 0.63 mg/3 mL Neb INHALATION (21:09)
[2023-02-04] VITALS (7 sets, daily range): BP systolic 115–121; BP diastolic 66–81; PULSE 65–67; RESP 16–18; TEMP 36.9–37.1; O2SAT 93–97
[2023-02-04] MEDS: oxyCODONE 5 mg IR Tab/Cap PO ×3 (02:04→12:21)
[2023-02-04 05:06] LABS: Hemoglobin 9.4 g/dL (11.5-15.3)
[2023-02-04] MEDS: montelukast sodium 10 mg Tablet PO (06:30)
[2023-02-04] MEDS: CELEcoxib 200 mg Capsule PO (06:30)
[2023-02-04] MEDS: cyanocobalamin 1,000 mcg Tablet 1000 MCG PO (06:30)
[2023-02-04] MEDS: levothyroxine 150 mcg Tablet PO (06:30)
[2023-02-04] MEDS: calcium polycarbophil 625 mg Tablet 1250 MG PO (06:30)
[2023-02-04] MEDS: acetaminophen 500 mg Tablet 1000 MG PO (06:30)
[2023-02-04] MEDS: atenolol 50 mg Tablet PO (06:30)
[2023-02-04] MEDS: ceFAZolin 2,000 MG in sodium chloride 0.9% (plus) 50 ML 100 MG IV (06:31)
[2023-02-04] MEDS: budesonide 0.5 mg/2 mL Neb INHALATION (07:59)
[2023-02-04] MEDS: gabapentin 300 mg Capsule PO (08:24)
[2023-02-04] MEDS: atorvastatin 40 mg Tablet 20 MG PO (08:24)
[2023-02-04] MEDS: pantoprazole DR 40 mg Tablet PO (08:24)
[2023-02-04] MEDS: sennosides-docusate Tablet 2 TAB PO (08:24)
[2023-02-04] MEDS: aspirin 325 mg EC Tablet PO (08:24)
--- NOTE | 2023-02-04 08:59 | P.DS_ITS ---
Discharge Providers Date of Admission: 02/03/23 09:41 Date of Discharge: February 04, 2023 Attending Provider at Admission: Narayan Strauss MD Attending Provider at Discharge: Narayan Strauss MD Primary Care Provider: Christiano Miller MD Diagnoses at Discharge Discharge Diagnosis (1) Status post left knee replacement: Status: Acute (2) Osteoarthritis of left knee: Status: Resolved Reason for Visit Reason for Visit: M17.12 Hospital Course Hospital Course The patient tolerated surgery well. They remained hemodynamically stable. They was begun on aspirin and foot pumps for DVT prophylaxis. The patient was mobilized with therapy beginning the day of surgery and by the first postoperative day independent with the walker. As the pain was adequately controlled and they were fully mobile they were discharged home. Physical Exam Narrative: On the day of discharge the knee incision was clean. They had no drainage. There is minimal swelling in the thigh and knee and the calf. No distal neurovascular deficits were noted Discharge Data Studies Completed and Pending Completed Studies During Hospitalization Category Date Time Status XR knee LT 1-2V 72104 Routine Exams 02/03/23 09:12 Completed Radiology Impressions Knee X-Ray 02/03/23 09:12 IMPRESSION: Left knee arthroplasty without abnormality. Laboratory Results WBC 5.7 10^3/uL (4.0-10.0) 01/24/23 10:35 RBC 4.28 10^6/uL (4.1-5.3) 01/24/23 10:35 Hgb 9.4 g/dL (11.5-15.3) L 02/04/23 04:36 Hct 39.1 % (37.0-47.0) 01/24/23 10:35 MCV 91.4 fl (81-99) 01/24/23 10:35 MCH 29.9 pg (28.0-34.0) 01/24/23 10:35 MCHC 32.7 g/dL (30.0-36.0) 01/24/23 10:35 RDW 14.0 % (12.1-15.1) 01/24/23 10:35 Plt Count 316 10^3/cmm (130-400) 01/24/23 10:35 MPV 9.0 fL (7.4-10.4) 01/24/23 10:35 Neut % (Auto) 43.0 % 01/24/23 10:35 Lymph % (Auto) 47.1 % 01/24/23 10:35 [place] % (Auto) 5.1 % 01/24/23 10:35 Eos % (Auto) 3.2 % 01/24/23 10:35 Baso % (Auto) 1.2 % 01/24/23 10:35 Neut # (Auto) 2.46 10^3/uL (1.8-7.7) 01/24/23 10:35 Lymph # (Auto) 2.7 10^3/uL (0.8-4.8) 01/24/23 10:35 [place] # (Auto) 0.3 10^3/uL (0.2-0.9) 01/24/23 10:35 Eos # (Auto) 0.2 10^3/uL (0.0-0.8) 01/24/23 10:35 Baso # (Auto) 0.1 10^3/uL (0.0-0.1) 01/24/23 10:35 Nucleated RBC % (auto) 0 % 01/24/23 10:35 Nucleated RBCs # 0.0 /100WBC 01/24/23 10:35 Sodium 142 mmol/L (136-145) 01/24/23 10:35 Potassium 4.1 mmol/L (3.5-5.1) 01/24/23 10:35 Chloride 106 mmol/L (98-107) 01/24/23 10:35 Carbon Dioxide 25 mmol/L (22-29) 01/24/23 10:35 Anion Gap 15.1 (5-19) 01/24/23 10:35 BUN 8 mg/dL (8-23) 01/24/23 10:35 Creatinine 0.7 mg/dL (0.5-0.9) 01/24/23 10:35 GFR Calculation 85.1 mL/min (90-130) L 01/24/23 10:35 Glucose 118 mg/dL (65-115) H 01/24/23 10:35 Calculated Osmolality 293 mOsm/kg (285-295) 01/24/23 10:35 Calcium 9.4 mg/dL (8.5-10.5) 01/24/23 10:35 Urine Color Yellow (Yellow) 01/24/23 10:35 Urine Appearance Clear (CLEAR) 01/24/23 10:35 Urine pH 7 (5-7) 01/24/23 10:35 Ur Specific [place] 1.005 (1.005-1.030) 01/24/23 10:35 Urine Protein Neg (Negative) 01/24/23 10:35 Urine Glucose (UA) Norm (Normal) 01/24/23 10:35 Urine Ketones Negative (Negative) 01/24/23 10:35 Urine Blood Neg (Negative) 01/24/23 10:35 Urine Nitrate Negative (Negative) 01/24/23 10:35 Urine Bilirubin Neg (Negative) 01/24/23 10:35 Urine Urobilinogen Neg mg/dL (Negative) 01/24/23 10:35 Ur Leukocyte Esterase Negative (Negative) 01/24/23 10:35 Urine RBC None /hpf (0-2) 01/24/23 10:35 Urine WBC None /hpf (0-5) 01/24/23 10:35 Ur Squamous Epith Cells None /hpf (0-5) 01/24/23 10:35 Amorphous Sediment Not Reportable 01/24/23 10:35 Urine Bacteria None /hpf (NONE) 01/24/23 10:35 Vitals Last Vital Signs Temp 98.8 F 02/04/23 04:00 Pulse 65 02/04/23 08:00 Resp 18 02/04/23 08:00 BP 115/66 02/04/23 08:00 Pulse Ox 94 02/04/23 08:00 O2 Del Method 02/04/23 08:00 O2 Flow Rate 6 02/03/23 09:23 Discharge Plan Discharge Patient Disposition: Home Condition: Stable Prescriptions: New oxycodone 5 mg Tablet 5 mg PO Q4H PRN (Reason: Moderate Pain) 7 Days Qty: 30 0RF cyclobenzaprine 10 mg Tablet 5 mg PO TID PRN (Reason: Muscle Spasms) 7 Days Qty: 20 0RF acetaminophen 500 mg Tablet 1,000 mg PO Q8H 14 Days Qty: 84 0RF aspirin 325 mg Tablet,Delayed Release (Dr/Ec) 325 mg PO DAILY 30 Days Qty: 30 0RF celecoxib 200 mg Capsule 200 mg PO Q12H 14 Days Qty: 28 0RF Continued atenolol 50 mg tablet 50 mg PO QAM levothyroxine [Levoxyl] 150 mcg tablet 150 mcg PO QAM ondansetron 4 mg tablet,disintegrating 4 mg PO Q8H PRN (Reason: nausea and vomiting) Qty: 30 0RF (DME) cam boot See Rx Instructions .Route .MEDSUPPLY Qty: 1 0RF Rx Instructions: As directed pantoprazole [Protonix] 40 mg tablet,delayed release (DR/EC) 40 mg PO DAILY 30 Days Qty: 30 11RF montelukast [Singulair] 10 mg tablet 10 mg PO QAM levalbuterol tartrate 45 mcg/actuation HFA aerosol inhaler 2 inh inhalation Q6H PRN (Reason: Shortness Of Breath) (DME) ASO brace See Rx Instructions .Route .MEDSUPPLY Qty: 1 0RF Rx Instructions: As directed multivitamin Tablet 1 tab PO DAILY fluticasone propion-salmeterol [Advair Diskus] 250-50 mcg/dose Blister With Device 1 inh INHALATION BID PRN (Reason: unknown) cyanocobalamin (vitamin B-12) [Vitamin B-12] 1,000 mcg Tablet 1,000 mcg PO QAM calcium polycarbophil [Fiber (calcium polycarbophil)] 625 mg Tablet 1,250 mg PO QAM atorvastatin 20 mg tablet 20 mg PO DAILY Rx Instructions: TAKE 1 TABLET BY MOUTH EVERY DAY Discontinued cyclobenzaprine 10 mg tablet 10 mg PO Q12H 14 Days Qty: 28 0RF Rx Instructions: Take one tablet by mouth every 12 hours as needed for muscle spasms acetaminophen 650 mg Tablet Extended Release 1,950 mg PO BEDTIME diclofenac sodium 75 mg tablet,delayed release (DR/EC) 75 mg PO Q12H PRN (Reason: pain) Qty: 20 0RF Discharge Orders: Discharge Order (Routine); Ordered 02/04/23 Ordered By: Narayan Strauss Other Ambulatory Orders: Physical Therapy Eval and Treat Outpatient (Order) Timeframe: 3 Days Facility: [facility] - Location: Physical Therapy Ordered By: Narayan Strauss Referrals: Narayan Strauss MD [Physician] - 02/07/23 9:15 am Discharge Diet: Advance as tolerated Discharge Activity: Limit activity as instructed Patient Instructions: Opioid Safety Activity Restrictions/Additional Instructions: Okay to shower Keep Tubigauze sleeve in place for swelling. Okay to remove for hygiene. Apply FirstIce up to 20 min/hr for pain and swelling Take Celebrex twice a day for the next 15 days for pain , discontinue other anti-inflammatories Take Neurontin twice a day for 7 days. Take Tylenol 500mg (2 tabs) as needed 3 times a day for mild pain take oxycodone for breakthrough pain. Take Flexeril for muscle spasm Exercises per physical therapy. May weight-bear as tolerated on total knee arthroplasty IF HAVE ANY PROBLEMS OR QUESTIONS CALL [facility]OSPITAL CL[facility] PSYCHOLOG[facility] AT AND ASK TO HAVE DR. YISSEL JONES. Discharge Attestations Time Spent in Discharge Care*: other Quality Metrics Clinical Quality Measures [ No reported AMI, CVA or VTE this stay] Coding Level of Care Code Acute Code for Chg Fwd Diagnoses Status post left knee replacement Z96.652 Osteoarthritis of left knee M17.12
[2023-02-04] MEDS: cyclobenzaprine 10 mg Tablet PO (10:12)
--- NOTE | 2023-02-04 10:18 | PC.CHAP ---
Pastoral Care Encounter/Spiritual Assessment Type of Contact [] Declined trade show manager visit [] Patient/Family/Request visit [] Outpatient visit [] Follow-up visit [] Physician referral [] Code/Alert [x] Routine visit [] Staff referral [] Actively dying [] Patient sleeping [x] Family support [] [] Out of room [] Palliative care [] [] Receiving care in room [] Pre-surgical visit [] Trauma [] Long length of stay [] ICU visit [] Other: Relational/Emotional Strength [x] Patient feels connected with others/family/visitors/staff [] Distress [] Loneliness/isolation [] Abandonment Spirituality of Patient [x] Person of Ethel [] Attends Pentecostalism of their Ethel [x] Believes in Prayer [] Reads Bible or Sikhism materials [] There are Spiritual issues to be addressed Tree Surgeon Helper Interventions x[x] Prayer [x] Active listening [] Non-anxious presence [x] Spiritual/emotional support [] Crisis/trauma care [] Spiritual counseling [] Bereavement support [] Provided bereavement packet [] Provided Bible/devotional materials [] Provided toy/stuffed animal, coloring book to patient or family member [] Provided Communion [] Anointing/[place] [] Salvation [x] Completed spiritual assessment [] Other: Impact on Illness or Injury [] Angry [] Fearful [] Anxious [] Often cries [] Exhaustion [] Unable to work [] Unable to attend zoroastrian [] Unable to walk/stand [] Unable to read [] Unable to drive [] Unable to eat/drink [] Unable to sleep [] Unable to be with family [] Patient intubated [] Other: Summary Time spent with patient 10 min
== END 2023-02-04 17:49 | disposition home or self-care (01) ==
LOC: MEDSURG 13:12
PROVIDERS: Anesthesiology; Admitting Provider Orthopaedic Surgery; PCP Family Medicine; Visit Provider Orthopaedic Surgery
PROC: (CPT 27447; principal; 2023-02-03 07:00)
DX: M17.12 Unilateral primary osteoarthritis, left knee (principal); I25.10 Atherosclerotic heart disease of native coronary artery without angina pectoris; I10 Essential (primary) hypertension; I25.2 Old myocardial infarction; K21.9 Gastro-esophageal reflux disease without esophagitis; E66.01 Morbid (severe) obesity due to excess calories; Z68.34 Body mass index [BMI] 34.0-34.9, adult; E03.9 Hypothyroidism, unspecified
CPT/HCPCS: 27447; 73560; 80048; 81001; 85018; 85025; 94640; 97110; 97116; 97161; 97165; 97530; C1776; G0378; J0171; J0690; J1580; J1885; J2250; J2270; J2370; J2405; J2704; J2765; J2795; J3490; J7030; J7614; J7626

== ENCOUNTER 2023-02-06 11:54 | Outpatient (RCR) | payer BC, SELFPAY | END 2023-02-21 23:59 | disposition home or self-care (01) | LOC: SPT 11:54 | PROVIDERS: PCP Family Medicine; Visit Provider Orthopaedic Surgery | DX: Z47.1 Aftercare following joint replacement surgery (principal); Z96.652 Presence of left artificial knee joint | CPT/HCPCS: 97110; 97161 ==

== ENCOUNTER 2023-02-22 06:00 | Outpatient (RCR) | payer BC, SELFPAY | END 2023-03-23 23:59 | disposition home or self-care (01) | LOC: SPT 06:00 | PROVIDERS: PCP Family Medicine; Visit Provider Orthopaedic Surgery | DX: Z47.1 Aftercare following joint replacement surgery (principal); Z96.652 Presence of left artificial knee joint | CPT/HCPCS: 97110; G0283 ==

== ENCOUNTER → 2023-03-04 13:44 | Outpatient (BNVA) | payer BC, SELFPAY | PROVIDERS: PCP Family Medicine; Visit Provider Orthopaedic Surgery | DX: Z96.652 Presence of left artificial knee joint (principal); S76.119A Strain of unspecified quadriceps muscle, fascia and tendon, initial encounter; W19.XXXA Unspecified fall, initial encounter | CPT/HCPCS: 73560; 73565 ==

== ENCOUNTER 2023-03-06 07:30 | Day surgery (SDC) | payer BC, SELFPAY ==
[2023-03-05 12:51] VITALS: BMI 34.4
[2023-03-06] VITALS (15 sets, daily range): BP systolic 146–174; BP diastolic 63–110; PULSE 55–65; RESP 11–46; TEMP 36.1–36.8; O2SAT 90–100
[2023-03-06] MEDS: sodium chloride 0.9% 1,000 ML 30 ML IV (08:08)
[2023-03-06] MEDS: scopolamine 1.5 Patch 1 PATCH TRANSDERMA (08:08)
[2023-03-06] MEDS: fentaNYL 50 mcg/mL INJ 2mL IVP (08:22)
[2023-03-06] MEDS: ondansetron 2 mg/ML SDV 2 mL 4 MG IVP ×2 (08:22→11:33)
[2023-03-06] MEDS: diphenhydrAMINE 50 mg/mL SDV 1mL 12.5 MG IVP (08:23)
--- NOTE | 2023-03-06 08:42 | ANES.PREANE2 ---
Pre-Anesthetic Assessment Height/Weight: Height 1.7 m Weight 99.79 kg Temp Pulse Resp BP Pulse Ox O2 Del Method 98.2 F 63 18 164/95 99 Room Air 03/06/23 07:51 03/06/23 07:51 03/06/23 08:22 03/06/23 07:51 03/06/23 08:22 03/06/23 07:53 Preop Diagnosis: Left quadriceps rupture Operation Date: 03/06/23 09:10 Proposed Procedures p left quadriceps tendon repair/ 93751, S76.119A(Left) - Narayan Strauss MD Familial anesthetic complications: PONV Was Beta Oskar taken within 24 hours: Yes Was Clonidine taken within 24 hours: N/A Last intake: Intake Last Liquid Date 03/05/23 Last Liquid Time 22:00 Last Solid Date 03/05/23 Last Solid Time 18:00 Social No alcohol and No tobacco Exam alert, oriented x 3, clear to auscultation bilaterally and regular rate & rhythm Airway Submandibular: within normal limits Cervical ROM: within normal limits Mallampati: Class II CV/HEM Hypertension GI Gastroesophageal Reflux Disease Metabolic Hyperlipidemia and Thyroid Disease [facility] [place] [facility] [place] [place]/DJD Anesthetic Plan ASA status: 3 Anesthesia: General Medications/Allergies Home Medications Medication Instructions Recorded Confirmed Last Taken Type atenolol 50 mg tablet 50 mg PO QAM 04/16/22 03/05/23 03/05/23 History levothyroxine 150 mcg tablet 150 mcg PO QAM 04/16/22 03/05/23 03/05/23 History (Levoxyl) levalbuterol tartrate 45 2 inh inhalation Q6H PRN Shortness 09/30/22 03/05/23 03/03/23 History mcg/actuation aerosol inhaler Of Breath ondansetron 4 mg disintegrating 4 mg PO Q8H PRN nausea and 10/04/22 03/05/23 02/12/23 Rx tablet vomiting #30 tabs calcium polycarbophil 625 mg 1,250 mg PO QAM 10/11/22 03/05/23 03/05/23 History tablet (Fiber (calcium polycarbophil)) cam boot #1 ea 10/11/22 03/04/23 Unknown Rx cyanocobalamin (vitamin B-12) 1,000 mcg PO QAM 10/11/22 03/05/23 03/05/23 History 1,000 mcg tablet (Vitamin B-12) fluticasone 250 mcg-salmeterol 50 1 inh inhalation BID PRN unknown 10/11/22 03/05/23 02/25/23 History mcg/dose blistr powdr for inhalation (Advair Diskus) multivitamin 1 tab PO DAILY 10/11/22 03/05/23 03/05/23 History ASO brace #1 ea 10/24/22 03/04/23 Unknown Rx atorvastatin 20 mg tablet 20 mg PO DAILY 01/24/23 03/05/23 03/05/23 History pantoprazole 40 mg tablet,delayed 40 mg PO DAILY 30 days #30 tabs 01/28/23 03/05/23 03/05/23 Rx release (Protonix) oxycodone 5 mg tablet 5 mg PO Q6H PRN pain 7 days #30 02/17/23 03/05/23 03/06/23 04:00 Rx tabs montelukast 10 mg tablet See Rx Instructions .Route 03/04/23 03/05/23 03/05/23 Rx .COMPLEX #30 tabs Allergies Allergy/AdvReac Type Severity Reaction Status Date / Time soy Allergy Unknown Unknown Verified 03/06/23 07:47 egg Allergy Unknown Verified 03/06/23 07:47 Current Medications Generic Name Dose Route Start Last Admin Trade Name Freq PRN Reason Stop Dose Admin Diphenhydramine HCl 12.5 mg 03/06/23 07:37 03/06/23 08:23 Diphenhydramine 50 Mg/Ml Sdv 1ml IVP 12.5 mg ONCE PRN Administration PONV Fentanyl 50 mcg 03/06/23 07:37 03/06/23 08:22 Fentanyl 50 Mcg/Ml Inj 2ml IVP 50 mcg ONCE PRN Administration Preop Pain Sodium Chloride 1,000 mls @ 30 mls/hr 03/06/23 07:45 03/06/23 08:08 Sodium Chloride 0.9% IV 03/07/23 07:44 30 mls/hr .Q24H ADAMARIS Administration Ondansetron HCl 4 mg 03/06/23 07:37 03/06/23 08:22 Ondansetron 2 Mg/Ml Sdv 2 Ml IVP 4 mg ONCE PRN Administration NAUSEA AND VOMITING PFSH Anesthesia Medical History Acute [place] 2010 Degenerative disc disease Endometriosis ovarian cysts Gastritis Hiatal hernia History of colon polyps Hyperlipemia Hypertension Hypothyroid Mild intermittent asthma Mitral valve prolapse Shinmarcia 2010 Surgical History History of back surgery 2016 History of esophagogastroduodenoscopy (EGD) History of total abdominal hysterectomy and bilateral salpingo-oophorectomy 2004 due to endometriosis. Had her right ovary removed due to ovarian cysts Hx of appendectomy Hx of section Hx of colonoscopy with polypectomy Hx of neck surgery 2014 Family History Mother CAD (coronary artery disease) Social History Smoking and tobacco status: never smoked Alcohol intake: current Alcohol intake frequency: holidays/special occasions only Data Anesthesia Cardiac Studies: No Data to Display
--- NOTE | 2023-03-06 09:19 | W.PM.OPSUD ---
Surgery/Procedure H&P Update DATE OF PROCEDURE: March 06, 2023 DATE H&P PERFORMED: 03/04/23 H&P UPDATE INFORMATION: I have reviewed H&P completed within last 30 days PREOP DIAGNOSIS: Left quadriceps rupture PLANNED PROCEDURE: Operation Date: 03/06/23 09:10 Proposed Procedures p left quadriceps tendon repair/ 32515, S76.119A(Left) - Narayan Strauss MD
[2023-03-06] MEDS: ceFAZolin 2,000 MG in sodium chloride 0.9% (plus) 50 ML 100 MG IV (09:57)
--- NOTE | 2023-03-06 10:17 | PM.OP ---
Operative Report Date of procedure: March 06, 2023 Pre-op diagnosis: Preop Diagnosis Left quadriceps rupture Post-op diagnosis: same Procedure done: Open repair left quadriceps tendon rupture Pathology: none sent Surgeon: Narayan Strauss Anesthesia: General Estimated blood loss (mL): 25 Tourniquet time (min): 36 Findings: The patient had disruption of her vastus medialis from the medial border of the patella. The tear began with a separation of her incision superior to the patella extended along the medial border the patella is split along the inferior medial border of the vastus medialis musculature Condition: stable Disposition: PACU Brief History: Sharon is a 62-year-old female who underwent access for left total knee arthroplasty on 02/03/2023. She sustained a fall in her yard with a hyperflexion in the knee and a rupture of her quadriceps tendon. She is taken to the operating room for quadriceps tendon repair to improve strength and overall function Procedure: The patient was taken to the operating room and given a general anesthesia. She is prepped and draped in supine position with her left leg exposed. She was given 2 g of Ancef. A timeout was performed. Dissection was initially carried through the superior half of the incision down through the subcutaneous fat revealing the tear in the medial extensor mechanism. The vastus medialis was dissected free of the overlying fat. The edges were freshened with a scalpel blade. There seemed to be a very healthy cuff tissue over the superior medial patella to facilitate repair. Interrupted 1 Ethibond sutures were placed in [id number] fashion proximal to distal beginning superior to the patella and extending along the medial border of the patella and along the inferior medial split. The repair was then reinforced with 1 strata fix. Knee was brought through motion from full extension to 90 degrees with repair feeling stable. The subcutaneous tissues were closed with 2-0 STRATAFIX and the skin with 4-0 STRATAFIX. Prineo dressing was applied. The patient was placed in a knee immobilizer. She was extubated taken to recovery room in stable condition.
[2023-03-06] MEDS: fentaNYL 50 mcg/mL INJ 2mL 100 MCG IVP (10:52)
[2023-03-06] MEDS: oxyCODONE-APAP 5-325 mg Tablet 1 TAB PO (11:39)
--- NOTE | 2023-03-06 15:22 | ANE.PACU2 ---
Inpatient post-anesthesia follow up: Airway intact: Yes Vital signs: Temperature 97.7 F Pulse Rate 57 Respiratory Rate 46 Blood Pressure 165/73 Pulse Oximetry 90 Oxygen Delivery Me thod Room Air Oxygen Flow Rate 6 Fraction of Inspir ed Oxygen Hydration adequate: Yes Nausea and vomiting: No Pain level: 3 Mental status: Baseline
== END 2023-03-06 12:45 | disposition home or self-care (01) ==
PROVIDERS: PCP Family Medicine; Visit Provider Orthopaedic Surgery
PROC: (CPT 27385; principal; 2023-03-06 09:00)
DX: S76.112A Strain of left quadriceps muscle, fascia and tendon, initial encounter (principal); W19.XXXA Unspecified fall, initial encounter; I10 Essential (primary) hypertension; K21.9 Gastro-esophageal reflux disease without esophagitis; E78.5 Hyperlipidemia, unspecified; E03.9 Hypothyroidism, unspecified; M19.90 Unspecified osteoarthritis, unspecified site; Z79.891 Long term (current) use of opiate analgesic; J45.20 Mild intermittent asthma, uncomplicated; Z79.82 Long term (current) use of aspirin
CPT/HCPCS: 27385; J0690; J1100; J1170; J1200; J2250; J2405; J2704; J3010; J7030

== ENCOUNTER 2023-03-24 06:00 | Outpatient (RCR) | payer BC, SELFPAY | END 2023-04-23 23:59 | disposition home or self-care (01) | LOC: SPT 06:00 | PROVIDERS: PCP Family Medicine; Visit Provider Orthopaedic Surgery | DX: Z47.1 Aftercare following joint replacement surgery (principal); Z96.652 Presence of left artificial knee joint | CPT/HCPCS: 97110; G0283 ==

== ENCOUNTER 2023-04-24 06:00 | Outpatient (RCR) | payer BC, SELFPAY | END 2023-05-23 23:59 | disposition home or self-care (01) | LOC: SPT 06:00 | PROVIDERS: PCP Family Medicine; Visit Provider Orthopaedic Surgery | DX: Z47.1 Aftercare following joint replacement surgery (principal); Z96.652 Presence of left artificial knee joint | CPT/HCPCS: 97110; G0283 ==

== ENCOUNTER 2023-04-30 13:17 | Outpatient (CLI) | payer BC, SELFPAY ==
--- NOTE | 2023-04-30 13:30 | CT_ITS ---
WS: [id number] CT RIGHT KNEE, NONCONTRAST TECHNIQUE: Noncontrast CT of the RIGHT knee to include the RIGHT hip and ankle. ELLIE CLINICAL INFORMATION: pre op planning COMPARISON: None. DLP: 932.[address] scans at [facility] use at least one of these dose optimization techniques: automated e xposure control; mA and/or kV adjustment per patient size (includes targeted exams where dose is matc hed to clinical indication); or iterative reconstruction. FINDINGS: Moderate to advanced joint narrowing RIGHT knee worse medial joint compartment. Subcutaneou s edema. Hypertrophic patella. Small suprapatellar effusion. Hypertrophic changes along the joint tasha e. LEFT TKA. Mild degenerative narrowing both hips. Incidental fat-containing LEFT inguinal hernia. CT/CT knee RT ELLIE IMPRESSION: Images obtained for preoperative purposes.
== END 2023-04-30 13:18 | disposition home or self-care (01) ==
LOC: RAD 13:18
PROVIDERS: PCP Family Medicine; Visit Provider Orthopaedic Surgery
DX: Z01.818 Encounter for other preprocedural examination (principal); M17.11 Unilateral primary osteoarthritis, right knee; R60.9 Edema, unspecified
CPT/HCPCS: 73700

== ENCOUNTER → 2023-06-02 13:30 | Outpatient (BNVA) | payer BC, SELFPAY | PROVIDERS: PCP Family Medicine; Visit Provider Student in an Organized Health Care Education/Training Program | DX: M17.11 Unilateral primary osteoarthritis, right knee (principal); Z01.818 Encounter for other preprocedural examination; Z96.652 Presence of left artificial knee joint | CPT/HCPCS: 36415; 73560; 73565; 80053; 81003; 85025 ==

== ENCOUNTER 2023-06-25 09:07 | Observation (INO) | payer BC, SELFPAY ==
[2023-06-18 10:22] VITALS: BMI 34.4
[2023-06-18 10:22] LABS: Bilirubin Urine Neg (Negative); Blood Urine Neg (Negative); Glucose Urine UA Norm (Normal); Ketones Urine Negative (Negative); Leukocyte Esterase Urine Negative (Negative); Nitrate Urine Negative (Negative); Protein Urine Neg (Negative); Specific Gravity, Urine 1.015 (1.005-1.030); Urine Appearance SL Hazy (CLEAR); Urine Color Yellow (Yellow); Urobilinogen Urine Norm (Negative); pH Urine 6 (5-7)
[2023-06-18 10:23] LABS: Add Urine Microscopic? YES
--- NOTE | 2023-06-18 10:27 | ANES.PREANE2 ---
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 but since then only GI upset) Social No alcohol and No tobacco Exam alert, oriented x 3, clear to auscultation bilaterally and regular rate & rhythm Airway Mallampati: Class II Dentition: full Pulmonary Asthma CV/HEM Hypertension and Myocardial Infarction (2010 d/t shingles?) Metabolic Thyroid Disease Anesthetic Plan ASA status: 3 Anesthesia: Choice Risk of > 500 ml blood loss (7ml/kg in children): Yes, adequate IV access and fluids planned Medications/Allergies Home Medications Medication Instructions Recorded Confirmed Last Taken Type levalbuterol tartrate 45 2 inh inhalation Q6H PRN Shortness 09/30/22 06/18/23 06/18/23 History mcg/actuation aerosol inhaler Of Breath ondansetron 4 mg disintegrating 4 mg PO Q8H PRN nausea and 10/04/22 06/18/23 06/18/23 Rx tablet vomiting #30 tabs calcium polycarbophil 625 mg 1,250 mg PO QAM 10/11/22 06/18/23 06/18/23 History tablet (Fiber (calcium polycarbophil)) cyanocobalamin (vitamin B-12) 1,000 mcg PO QAM 10/11/22 06/18/23 06/18/23 History 1,000 mcg tablet (Vitamin B-12) fluticasone 250 mcg-salmeterol 50 1 inh inhalation BID PRN unknown 10/11/22 06/18/23 06/18/23 History mcg/dose blistr powdr for inhalation (Advair Diskus) multivitamin 1 tab PO DAILY 10/11/22 06/18/23 06/18/23 History atorvastatin 20 mg tablet 20 mg PO DAILY 01/24/23 06/18/23 06/18/23 History pantoprazole 40 mg tablet,delayed 40 mg PO DAILY 30 days #30 tabs 01/28/23 06/18/23 06/18/23 Rx release (Protonix) montelukast 10 mg tablet See Rx Instructions .Route 04/11/23 07/26/23 07/26/23 Rx .COMPLEX #30 tabs cyclobenzaprine 10 mg tablet 10 mg PO TID PRN muscle spasm #14 03/07/23 06/18/23 06/18/23 Rx tabs oxycodone 5 mg tablet 5 mg PO Q4H PRN pain 7 days #30 03/24/23 06/18/23 06/18/23 Rx tabs atenolol 50 mg tablet See Rx Instructions .Route 05/22/23 06/18/23 06/18/23 Rx .COMPLEX #90 tabs levothyroxine 150 mcg tablet See Rx Instructions .Route 05/22/23 06/18/23 06/18/23 Rx .COMPLEX #90 tabs Allergies Allergy/AdvReac Type Severity Reaction Status Date / Time soy Allergy Unknown Unknown Verified 06/18/23 10:11 egg Allergy Unknown Verified 06/18/23 10:11 [facility] Anesthesia Medical History (Updated 06/10/23 @ 14:27 by Kristopher Rojas NP) Acute [place] 2010 Degenerative disc disease Endometriosis ovarian cysts Gastritis Hiatal hernia History of colon polyps Hx of mitral valve prolapse Hyperlipemia Hypertension Hypothyroid Mild intermittent asthma Mitral valve prolapse Shingles 2010 Surgical History History of back surgery 2016 History of esophagogastroduodenoscopy (EGD) History of total abdominal hysterectomy and bilateral salpingo-oophorectomy 2005 due to endometriosis. Had her right ovary removed due to ovarian cysts Hx of appendectomy Hx of section Hx of colonoscopy with polypectomy Hx of neck surgery 2014 Family History Mother CAD (coronary artery disease) Denies family history of Clotting disorder Anesthesia complication Bleeding disorder Social History Smoking and tobacco status: never smoked Alcohol intake: current Alcohol intake frequency: holidays/special occasions only Data Anesthesia Urine 06/18/23 Range/Units 10:07 Urine Color Yellow (Yellow) Urine Appearance Sl hazy A (CLEAR) Urine pH 6 (5-7) Ur Specific [place] 1.015 (1.005-1.030) Urine Protein Neg (Negative) Urine Glucose (UA) Norm (Normal) Urine Ketones Negative (Negative) Urine Nitrate Negative (Negative) Urine Bilirubin Neg (Negative) Ur Leukocyte Esterase Negative (Negative) Cardiac Studies: No Data to Display
[2023-06-18 10:37] LABS: RBC Urine 0-4 /hpf (0-2); Squamous Epithelial Cell Urine 0-4 /hpf (0-5); WBC Urine 0-4 /hpf (0-5)
[2023-06-18 10:38] LABS: Add Urine Culture? No
[2023-06-25] VITALS (20 sets, daily range): BP systolic 103–155; BP diastolic 59–89; PULSE 51–69; RESP 14–19; TEMP 36.1–36.9; O2SAT 91–98
[2023-06-25] MEDS: acetaminophen 1,000 MG/100 ML PIGGYBACK 400 MG IV ×3 (06:24→21:32)
[2023-06-25] MEDS: lactated ringers 500 ML IV (06:24)
[2023-06-25] MEDS: ketorolac 30 mg/mL INJ IVP (06:25)
[2023-06-25] MEDS: scopolamine 1.5 Patch 1 PATCH TRANSDERMA (06:27)
[2023-06-25 06:28] LABS: Basophils # 0.1 10^3/uL (0.0-0.1); Basophils % 1.1 %; Eosinophils # 0.3 10^3/uL (0.0-0.8); Eosinophils % 4.1 %; Hematocrit 41.1 % (37.0-47.0); Hemoglobin 13.1 g/dL (11.5-15.3); Lymphocytes # 3.2 10^3/uL (0.8-4.8); Lymphocytes % 48.4 %; Mean Corpuscular HGB Conc 31.9 g/dL (30.0-36.0); Mean Corpuscular Hemoglobin 28.5 pg (28.0-34.0); Mean Corpuscular Volume 89.5 fl (81-99); Mean Platelet Volume 8.9 fL (7.4-10.4); Monocytes # 0.3 10^3/uL (0.2-0.9); Monocytes % 4.3 %; Neutrophils # 2.74 10^3/uL (1.8-7.7); Neutrophils % 41.8 %; Nucleated Red Blood Cells % 0 %; Platelet Count 332 10^3/cmm (130-400); Red Blood Count 4.59 10^6/uL (4.1-5.3); White Blood Count 6.6 10^3/uL (4.0-10.0)
--- NOTE | 2023-06-25 06:46 | W.PM.OPSUD ---
Surgery/Procedure H&P Update DATE OF PROCEDURE: June 25, 2023 DATE H&P PERFORMED: 06/10/23 CHANGES TO PREVIOUS DOCUMENTATION: None. No change in the patient's HPI from office visit. She is been cleared by her preoperative clearance team. Her UA has been within normal limits and she is had no change in her symptomatology. At this point in time through shared decision making she agrees to proceed with a right total knee arthroplasty Marcin robotic assisted. All questions answered. She understands the risk benefits complication alternatives with surgery and elects proceed. PREOP DIAGNOSIS: Right knee degenerative joint disease PRIMARY INDICATION FOR PROCEDURE: Right knee degenerative joint disease PLANNED PROCEDURE: Operation Date: 06/25/23 07:00 Proposed Procedures p [right total knee makoplasty/ 73889, M17.11(Right) - Alexander Chance DO
[2023-06-25 06:56] LABS: Blood Urea Nitrogen 12 mg/dL (8-23); Calcium 9.6 mg/dL (8.5-10.5); Carbon Dioxide 23 mmol/L (22-29); Chloride 106 mmol/L (98-107); Glomerular Filtration Rate 85.1 mL/min (90-130); Glucose 102 mg/dL (65-115); Osmolality Calculated 290 mOsm/kg (285-295); Sodium 140 mmol/L (136-145)
[2023-06-25 06:57] LABS: Anion Gap 15.2 (5-19); Potassium 4.2 mmol/L (3.5-5.1)
[2023-06-25] MEDS: sodium chloride 0.9% 1,000 ML 30 ML IV (06:57)
[2023-06-25] MEDS: ceFAZolin 2,000 MG in sodium chloride 0.9% (plus) 50 ML 100 MG IV ×3 (07:00→22:11)
[2023-06-25] MEDS: EPINEPHrine 1 mg/mL INJ XX (07:56)
[2023-06-25] MEDS: ketorolac 30 mg/mL INJ XX (07:56)
--- NOTE | 2023-06-25 08:06 | SUR.OPER ---
daughter notified of surgical start
--- NOTE | 2023-06-25 08:54 | P.ANESUD_ITS ---
Pre-Anesthetic Update Pre-Anesthetic Assessment: Date of Surgery/Procedure: 06/25/23 Preop Paola gnosis: Right knee degenerative joint disease Proposed Procedure: Operation Date: 06/25/23 07:00 Proposed Procedures p [right total knee makoplasty/ 54598, M17.11(Right) - Alexander Clermont, DO Any changes to Pre-Anesthetic Assessment?: No Last Intake: Intake Last Liquid Date 06/24/23 Last Liquid Time 22:00 Last Solid Date 06/24/23 Last Solid Time 18:00 Labs Last 48hrs: Short CBC 06/25/23 Range/Units 06:18 WBC 6.6 (4.0-10.0) 10^3/ uL Hgb 13.1 (11.5-15.3) g/dL Hct 41.1 (37.0-47.0) % MCV 89.5 (81-99) fl Plt Count 332 (130-400) 10^3/c mm Neut % (Auto) 41.8 % Neut # (Auto) 2.74 (1.8-7.7) 10^3/u L BMP 06/25/23 06:18 Sodium 140 Potassium 4.2 Chloride 106 Carbon Dioxide 23 BUN 12 Creatinine 0.7 Glucose 102 Calcium 9.6 Blood Bank 06/25/23 06:13 Blood Type A Positive Rho(D) Type Positive Antibody Screen Negative Vitals: Temperature 96.9 F L 06/25/23 06:06 Temperature Source Temporal Artery S can 06/25/23 06:06 Pulse Rate 63 06/25/23 06:06 Respiratory Rate 18 06/25/23 06:06 Blood Pressure 155/89 06/25/23 06:27 Blood Pressure Maribel n 111 06/25/23 06:06 Pulse Oximetry 98 06/25/23 06:06 Oxygen Delivery Me thod Room Air 06/25/23 06:06 Exam: Pre-Anes Outpt Exam: alert, oriented x 3, clear to auscultation bilaterally and regular rate & rhythm Cardiac Studies: No Data to Display Anesthesia Procedures Nerve Block: Nerve Block 1: Main Anesthesia: spinal anesthesia block Time Out Performed: Yes Consent: requested by attending/covering physician, from patient, risks and benefits reviewed and patient agrees to proceed Nerve block location: adductor canal (right) Anesthesia monitors applied: pulse oximetry, EKG, BP cuff and oxygen Nerve block position: supine Anesthetic Used: ropivicaine 0.5% Amount of anesthesia used (mL): 20 Ultrasound used to: recognize landmarks Nerve Stimulator Used?: No Interscalene/Femoral BLK: 4 stimuplex 21 g needle used for position and inplane approach Injection: neg aspiration of heme Patient Tolerated Procedure: well Complications: none
--- NOTE | 2023-06-25 09:09 | XRR_ITS ---
PROCEDURE INFORMATION: Exam: XR Right Knee Exam date and time: 06/25/2023 9:37 AM Age: 62 years old Clinical indication: Device placement; Joint replacement hardware; Prior surgery; Surgery date: Post-operative (0-2 days); Surgery type: Right tka, ; additional info: Postop right tka, doing pacu TECHNIQUE: Imaging protocol: Radiologic exam of the right knee. Views: 1 or 2 views. COMPARISON: CR XR knees AP WB w RT lmt ORTH 06/02/2023 10:00 AM FINDINGS: Bones/joints: The patient has had a right total knee arthroplasty with no adverse findings. Soft tissues: Postoperative soft tissue changes are seen. XR/XR knee RT 1-2V [id number] IMPRESSION: Normal appearing postoperative right total knee arthroplasty.
--- NOTE | 2023-06-25 09:10 | PM.OP2 ---
Brief Operative Note Date of procedure: 06/25/23 Pre-op diagnosis: Right knee degenerative joint disease Post-op diagnosis: same Procedure Done: Right total knee arthroplasty?Marcin robotic assisted Surgeon: Alexander Chance Estimated blood loss (mL): 25 Complications: None Post-op Plan: Patient taken to PACU in stable condition recovering well. Patient will be admitted to the floor. Hospitalist consulted for medical management. PT/OT. Weight-bear as tolerated. Postoperative x-rays. Postoperative DVT prophylaxis, postoperative antibiotics postoperative pain control. Patient will work with PT/OT. Later today. Plan for discharge home tomorrow. Patient understands agrees with current plan. Questions answered. Condition: stable Disposition: floor Coding Level of Care Code Acute Code for g Fwd
--- NOTE | 2023-06-25 09:12 | PM.PACU ---
PACU note Narrative: Patient taken to PACU in stable condition recovering well pain controlled. Spinal anesthesia still on affect unable to assess motor or sensory at this time. Patient will be admitted to the floor postoperatively distal pulses are palpable toes warm well-perfused brisk cap refill less than 2 seconds dressing to the right knee is clean dry and intact. Exam: awake Disposition: admitted
--- NOTE | 2023-06-25 09:12 | PM.OP ---
Operative Report Date of procedure: June 25, 2023 Pre-op diagnosis: Preop Diagnosis Right knee degenerative joint disease Procedure: Post-op diagnosis: Same Procedure done: Right total knee arthroplasty, cemented?robotic assisted Marcin Implants: Karan triathlon size 5 femur CR cemented right Karan triathlon size? 5tibia universal baseplate cemented Karan triathlon symmetric patella size 36 mm Karan triathlon polyethylene 10mm Surgeon: Alexander Chance DO Estimated blood loss: 25 mL Tourniquet 66minutes IV fluids: See anesthesia record Urine output: See anesthesia record Complications: None Condition: stable Disposition: floor Brief History: Patient is a 62-year-old female with with chronic right knee degenerative joint disease.? Patient has been worked up in the outpatient setting in the orthopedic office at this point time through shared decision making given his [id number] arthritis as well as failed conservative treatment, and pt would like to proceed with a right total knee arthroplasty.? Patient underwent a previous left total knee arthroplasty and has done well and like to proceed with a right total knee arthroplasty. Through shared decision making elected to proceed with surgical intervention for right total knee arthroplasty.? We talked about continued conservative treatment and surgical intervention as far as the risk benefits complications alternatives surgical and nonsurgical treatment options.? At this point time understanding patient risks with surgery he agrees to proceed with surgical intervention.? Once again? risk with surgery include but are not limited to make it better make it worse blood clot, heart attack, stroke, on the table, infection, injury to nerves or vessels, persistent pain, arthrofibrosis, implant failure.? Understanding these risks patient agrees to proceed with surgical intervention consent was obtained in the office.? All questions answered. Procedure: Patient was seen and evaluated in the preoperative holding area.? Consent was reviewed and signed with patient with plan for right total knee arthroplasty.? All questions answered.? Correct extremity marked.? Patient seen and evaluated by the anesthesia department and once cleared for surgery was taken back to the operative suite.? Patient was placed into a supine position on the OR table.? All bony prominences were well-padded.? Patient was appropriately secured to the bed.? Patient underwent anesthesia per the anesthesia department.? Patient received spinal anesthesia and? Kan catheter was placed.? A nonsterile tourniquet was applied to the right thigh.? At this point in time a final timeout performed.? Patient received appropriate preoperative antibiotics and TXA. Next the right lower extremity was then prepped and draped in standard orthopedic fashion. Esmarch tourniquet was used exsanguinate the right lower extremity.? Tourniquet was insufflated to 250 mmHg. A standard anterior incision was made over midline of the knee.? Sharp scalpel excision through skin and subcutaneous tissue full-thickness skin flaps were made.? Fascia was elevated off of the extensor retinaculum was stable with medial parapatellar arthrotomy was then made. Appropriate leases were made given patient had varus deformity. The performed standard sequential releases.? Immediately on entry into the joint patient was found to have severe eburnated bone and tricompartmental arthritic changes noted.? With significant osteophyte formation.? Next the the patella was then stuffed and the knee was then flexed.?? Anthony was placed superiorly around the anterior aspect of the femur this was freed of synovium and I subsequently then placed by 2 femur pins to establish my femur arrays for the Marcin robot.? These were then placed bicortically and? femur array was then appropriately secured with appropriate visualization.? Next attention was turned towards the tibial rays.? These were then drilled sequentially bicortically in parallel fashion and intraincisional.? I then placed my guide as well as my tibial array on in place.? This was appropriately secured and had excellent visualization with the Marcin robot.? Next the tibial checkpoint as well as femur checkpoint were then placed.? At this point time I then subsequently established my head center as well as my medial lateral malleoli as well as my checkpoints.? Next utilizing standard Marcin technology I then mapped out the appropriate points and confirmation points around the femur as well as the tibia in standard fashion.? Once this was then done I then removed all osteophytes in preparation for dynamic testing.? All osteophytes were removed as well as I removed the ACL and the PCL was excised due to its significant tearing and degeneration noted.? At this point time the knee was brought into full extension and we performed our standard evaluation of our gap balancing stressing his ligaments and extension as well as flexion appropriate adjustments were made to have appropriate gap balancing in both flexion and extension.? This plan for final counts.? We get a preoperative plan evaluating our implants which was a size 5 femur and a size 5 5 tibia.? Next we brought in the Marcin robot and sequentially made our femur cuts.? All excess bony cuts were then removed.? Finally we made our tibial cut.? Once this was done a standard PCL retractor was then placed into this position I excised the medial and lateral meniscus.? The tibial cut was then subsequently removed all excess bony debris was removed.? I then utilized a lamina candy maker helper and remove the posterior osteophytes.? At this point time sized the tibia and confirmed this was a size 5.? I utilized our blunt probe to establish rotation of tibial implant.? Once this was done I then placed my tibia size 5 trial in appropriate position and then subsequently placed tibial pins to hold this into place placed a size 10 mm poly as well as a size 5 femur which was appropriately impacted in place knee was then subsequently brought into extension. Trials were then assessed, this was stable with varus valgus stress in extension as well as flexion.? in extension as well as had symmetrical translation when brought into flexion demonstrating symmetrical gaps. I had excellent balance gaps in flexion and extension with varus and valgus stresses.? At this point I was satisfied with these implants these were then verified and opened on the back table size 5 tibia, size 5 femur,? size 10 mm polythickness.? We did confirm appropriate gap balancing and stresses as well as alignment utilizing? Marcin and were satisfied with this plan.? ?At this point time with my trials in place I then towel clip the patella everted this made appropriate measurements subsequently utilizing freehand technique performed by patellar resurfacing this was confirmed to be appropriate resection and subsequently sized to be a 36 mm symmetric.? My drill peg guides were then clamped and appropriate position and appropriate position in the patella for appropriate tracking and parallel with the joint.? Pegs were drilled trial implant was placed and the knee was then subsequently ranged and found to have excellent patellar tracking.? Femur pegs were then drilled.? Satisfied with our tibial placement rotation I then utilized the keel punch and prepped the tibia.? At this point time all of our trial implants were removed.? All checkpoints as well as guidepins and arrays were removed and appropriate counts made.? The wound bed? was thoroughly irrigated and dried and prepped for cementation.? Cement was mixed on the back table.? Once cement was ready this was then covered onto the tibia and the tibial baseplate was then impacted and all excess cement was removed.? Next the polyethylene was then impacted into place on the tibial baseplate.? Next cement was placed onto the femur as well as under the femur implants and impacted in to place and all excess cement was extruded and removed.? Knee was taken into full extension? to clear all excess cement was removed.? Warm saline was placed over the joint.? I then towel clip patella and dried for cementation. cemented the patella into place.? This was all clamped and the cement was allowed to cure.? Thorough irrigation performed with pulse lavage.? I then placed my periarticular injection while the cement was curing.? Once cured the knee was taken through range of motion and had excellent stability and gaps were balanced in flexion and extension.? Tourniquet was then deflated. hemostasis satisfactory with electrocautery.? Next I then subsequently closed the capsule with Ethibond suture as well as a running strata fix suture.? Knee was then taken through range of motion 30 times.? Next the skin was then closed in layered fashion of running stratifix sutures of deep and subcutenous tissue and skin.? ?closed in flexion and Prineo glue was then placed over the incision this allowed to cure.? Incision was covered with OpSite, with ABDs soft roll and Aaron wrap.? Patient was then awakened from anesthesia and taken to PACU in stable condition. Disposition: Patient taken to PACU in stable condition will be admitted to the floor for pain control PT/OT, weight-bear as tolerated right lower extremity dressing changes as needed, DVT prophylaxis. Pain control. Patient will receive appropriate postoperative antibiotics. patient will be seen today by the internal medicine team for medical management.? Patient will follow up with the office in 2 weeks.? Patient understands agrees with current plan.? All questions answered.
--- NOTE | 2023-06-25 09:55 | ECG_ITS ---
[facility] Test Date: 2023-06-25 Pat Name: Sharon Arenas Department: Room: 272 Gender: Female Ultrasonographer: : 1960 Requested By: Brian Lock Order Number: [id number] Amrit MD: Papito Yu M.D. Measurements Intervals Gap Rate: 47 P: 54 OH: 189 QRS: 8 QRSD: 98 T: 45 QT: 485 QTc: 432 Interpretive Statements SINUS BRADYCARDIA POSSIBLE ANTERIOR MYOCARDIAL INFARCTION , PROBABLY OLD [30 ms Q WAVE IN V3/V4, OR R < 0.2 mV IN V4] No previous ECG available for comparison Electronically Signed On 06-25-2023 23:31:08 CDT by Papito Yu M.D. [email or web address] [email or web address].[email or web address].K/store/OM/[id number]
--- NOTE | 2023-06-25 09:55 | PM.CONSULT ---
Providers/Reason For Consult Consulting Physician/Specialty*: Brian Chacon MD, hospitalist Reason for Consult*: Medical management Requesting Physician: Dr. Chance Attending Physician: Alexander Chance DO Primary Care Provider: Christiano Miller MD History of Present Illness History of Present Illness Sharon Arenas is a 62 year old female who underwent right total knee arthroplasty today. A nerve block was used. Patient denies any pain. Reports no chest discomfort or shortness of breath. Plans on going home tomorrow. Review of Systems General: Reports: 10 or more systems reviewed and unremarkable except in HPI and below Card: Denies: chest pain Resp: Denies: dyspnea GI: Denies: abdominal pain, hematochezia, melena or mucus in stool Medications/Allergies Home Medications Medication Instructions Recorded Confirmed Last Taken Type levalbuterol tartrate 45 2 inh inhalation Q6H PRN Shortness 09/30/22 06/18/23 06/24/23 History mcg/actuation aerosol inhaler Of Breath ondansetron 4 mg disintegrating 4 mg PO Q8H PRN nausea and 10/04/22 06/18/23 06/18/23 Rx tablet vomiting #30 tabs calcium polycarbophil 625 mg 1,250 mg PO QAM 10/11/22 06/18/23 06/24/23 History tablet (Fiber (calcium polycarbophil)) cyanocobalamin (vitamin B-12) 1,000 mcg PO QAM 10/11/22 06/18/23 06/24/23 History 1,000 mcg tablet (Vitamin B-12) fluticasone 250 mcg-salmeterol 50 1 inh inhalation BID PRN unknown 10/11/22 06/18/23 06/24/23 History mcg/dose blistr powdr for inhalation (Advair Diskus) multivitamin 1 tab PO DAILY 10/11/22 06/18/23 06/24/23 History atorvastatin 20 mg tablet 20 mg PO DAILY 01/24/23 06/18/23 06/24/23 History montelukast 10 mg tablet See Rx Instructions .Route 03/04/23 06/18/23 06/18/23 Rx .COMPLEX #30 tabs cyclobenzaprine 10 mg tablet 10 mg PO TID PRN muscle spasm #14 03/07/23 06/18/23 06/18/23 Rx tabs oxycodone 5 mg tablet 5 mg PO Q4H PRN pain 7 days #30 03/24/23 06/18/23 06/22/23 Rx tabs atenolol 50 mg tablet See Rx Instructions .Route 05/22/23 06/18/23 06/24/23 Rx .COMPLEX #90 tabs levothyroxine 150 mcg tablet See Rx Instructions .Route 05/22/23 06/18/23 06/24/23 Rx .COMPLEX #90 tabs Allergies Allergy/AdvReac Type Severity Reaction Status Date / Time soy Allergy Unknown Unknown Verified 06/18/23 10:11 egg Allergy Unknown Verified 06/18/23 10:11 Current Medications Generic Name Dose Route Start Last Admin Trade Name Freq PRN Reason Stop Dose Admin Sodium Chloride 1,000 mls @ 30 mls/hr 06/25/23 06:00 06/25/23 06:57 Sodium Chloride 0.9% IV 06/26/23 05:59 30 mls/hr .Q24H ADAMARIS Administration Scopolamine 1 patch 06/25/23 05:53 06/25/23 06:27 Scopolamine 1.5 Patch TRANSDERMA 1 patch ONCE PRN Administration anesthetic related nausea PFSH Acute PFSH: Medical History (Updated 06/25/23 @ 09:58 by Brian Chacon MD) Acute PA 2010 Reports abnormal EKG but further investigation with nuclear stress testing showed no concerns. No cardiac procedure done Degenerative disc disease Endometriosis ovarian cysts Gastritis Hiatal hernia History of colon polyps Hx of mitral valve prolapse Hyperlipemia Hypertension Hypothyroid Mild intermittent asthma Mitral valve prolapse Shingles 2010 Surgical History History of back surgery 2016 History of esophagogastroduodenoscopy (EGD) History of total abdominal hysterectomy and bilateral salpingo-oophorectomy 2004 due to endometriosis. Had her right ovary removed due to ovarian cysts Hx of appendectomy Hx of section Hx of colonoscopy with polypectomy Hx of neck surgery 2014 Family History Mother CAD (coronary artery disease) Denies family history of Clotting disorder Anesthesia complication Bleeding disorder Social History Smoking and tobacco status: never smoked Alcohol intake: current Alcohol intake frequency: holidays/special occasions only Vitals/I&O/Wt Last Vital Signs Temp 97.0 F L 06/25/23 09:26 Pulse 65 06/25/23 09:35 Resp 17 06/25/23 09:35 BP 105/67 06/25/23 09:35 Pulse Ox 96 06/25/23 09:35 O2 Del Method Room Air 06/25/23 09:35 06/24/23 06/25/23 06/25/23 22:59 06:59 14:59 Intake Total 600 / 600 370 / 370 Output Total 150 / 150 Balance 600 / 600 220 / 220 Physical Exam Narrative: General exam is a conversive white female, no distress HEENT: Atraumatic and normocephalic. Oropharynx clear Neck is supple no lymphadenopathy thyromegaly Cardiovascular regular rate and rhythm, no murmur Lungs clear Abdomen is soft, positive bowel sounds. No obvious organomegaly exam demonstrates Kan Extremities no cyanosis clubbing or edema. Right lower extremity/knee with dressing. Distal cap refill intact Skin no rash Neuro no unexpected focal deficits, expected paresis of right lower extremity from nerve block persists Urinary Catheter Management: Kan: Cath Placed During This Visit: yes Urinary Catheter Date of Insertion: 06/25/23 Urinary Catheter Time of Insertion: 07:54 Data 06/25/23 06:18 06/25/23 06:18 Other Labs: I reviewed her postoperative knee x-ray demonstrating total knee arthroplasty I do not see an EKG on her chart A&P Assessment and plan (1) Osteoarthritis of right knee: She is directly postoperative knee replacement Laboratory will be checked tomorrow to evaluate for postoperative anemia Patient will receive Eliquis for DVT prophylaxis Qualifiers: Osteoarthritis type: primary Qualified Code(s): M17.11 - Unilateral primary osteoarthritis, right knee (2) Hypertension: Continue home medications Qualifiers: Hypertension type: primary hypertension Qualified Code(s): I10 - Essential (primary) hypertension Plan Past medical history reports acute [place] in 2010. I clarified this with the patient. She states she was told she had a myocardial infarction based on the abnormal EKG pattern. Investigation then occurred, and she reports she was told she was healthy. It sounds like this was a nuclear stress test. She has not had any chest discomfort since and she believes this was related to her shingles. I will obtain an EKG for baseline. Other medical problems as outlined in past medical history Thank you for this consultation Consult Attestations Medical Necessity Statement: As per primary Diagnoses Osteoarthritis of right knee M17.11 Osteoarthritis type: primary Hypertension I10 Hypertension type: primary hypertension Time Spent (min) 45
[2023-06-25] MEDS: oxyCODONE 5 mg IR Tab/Cap PO ×3 (11:08→20:02)
[2023-06-25] MEDS: lactated ringers 1,000 ML 100 ML IV ×2 (11:09→20:02)
[2023-06-25] MEDS: ketorolac 30 mg/mL INJ 15 MG IVP (12:32)
[2023-06-25] MEDS: chlorhexidine gluconate 0.12% Btl 473 mL 30 ML MUCOUS MEM ×3 (12:35→20:03)
--- NOTE | 2023-06-25 15:36 | ANE.PACU2 ---
Inpatient post-anesthesia follow up: Airway intact: Yes Vital signs: Temperature 97.6 F Pulse Rate 69 Respiratory Rate 18 Blood Pressure 125/65 Pulse Oximetry 93 Oxygen Delivery Me thod Room Air Oxygen Flow Rate Fraction of Inspir ed Oxygen Hydration adequate: Yes Nausea and vomiting: No Pain level: 1 Mental status: Baseline
[2023-06-25] MEDS: calcium carb-vit d 600mg/400unit 1 Tablet 1 EACH PO (17:10)
[2023-06-25] MEDS: iron polysaccharide complex 150 mg Capsule PO (17:10)
[2023-06-25] MEDS: mupirocin oint 22 gm 1 APPLIC NASAL (17:10)
[2023-06-25] MEDS: atenolol 50 mg Tablet PO (20:02)
[2023-06-25] MEDS: budesonide 0.5 mg/2 mL Neb INHALATION (20:11)
[2023-06-25] MEDS: HYDROmorphone 1 mg/mL INJ 1 mL 0.5 MG IVP (20:47)
[2023-06-26] VITALS (10 sets, daily range): BP systolic 120–144; BP diastolic 65–80; PULSE 54–65; RESP 16–18; TEMP 36.4–36.6; O2SAT 95–98
[2023-06-26] MEDS: HYDROmorphone 1 mg/mL INJ 1 mL 0.5 MG IVP (01:56)
[2023-06-26] MEDS: TRAMadol 50 mg Tablet PO ×3 (04:04→13:14)
[2023-06-26 04:25] LABS: Basophils % 0.2 %; Hematocrit 34.2 % (37.0-47.0); Hemoglobin 10.8 g/dL (11.5-15.3); Lymphocytes # 1.6 10^3/uL (0.8-4.8); Lymphocytes % 15.7 %; Mean Corpuscular HGB Conc 31.6 g/dL (30.0-36.0); Mean Corpuscular Hemoglobin 29.1 pg (28.0-34.0); Mean Corpuscular Volume 92.2 fl (81-99); Mean Platelet Volume 8.9 fL (7.4-10.4); Monocytes # 0.6 10^3/uL (0.2-0.9); Neutrophils # 8.06 10^3/uL (1.8-7.7); Neutrophils % 77.4 %; Nucleated Red Blood Cells % 0 %; Platelet Count 276 10^3/cmm (130-400); Red Blood Count 3.71 10^6/uL (4.1-5.3); Red Cell Distribution Width 15.1 % (12.1-15.1); White Blood Count 10.4 10^3/uL (4.0-10.0)
[2023-06-26 04:44] LABS: Anion Gap 14.3 (5-19); Blood Urea Nitrogen 11 mg/dL (8-23); Calcium 9.1 mg/dL (8.5-10.5); Carbon Dioxide 24 mmol/L (22-29); Chloride 105 mmol/L (98-107); Glomerular Filtration Rate 85.1 mL/min (90-130); Glucose 164 mg/dL (65-115); Osmolality Calculated 291 mOsm/kg (285-295); Potassium 4.3 mmol/L (3.5-5.1); Sodium 139 mmol/L (136-145)
[2023-06-26] MEDS: ketorolac 30 mg/mL INJ 15 MG IVP (04:45)
[2023-06-26] MEDS: oxyCODONE 5 mg IR Tab/Cap PO ×3 (04:54→10:25)
--- NOTE | 2023-06-26 04:54 | PC.NURSE ---
Addendum entered by Tri Powell RN 06/26/23 05:31: Patient states Oxy helped her pain. Original Note: Patient states Tramdol did not help her pain.
[2023-06-26] MEDS: acetaminophen 1,000 MG/100 ML PIGGYBACK 400 MG IV (05:32)
[2023-06-26] MEDS: ceFAZolin 2,000 MG in sodium chloride 0.9% (plus) 50 ML 100 MG IV (06:04)
[2023-06-26] MEDS: budesonide 0.5 mg/2 mL Neb INHALATION (07:41)
[2023-06-26] MEDS: ipratropium-albuterol 3 mL Neb INHALATION (07:42)
[2023-06-26] MEDS: montelukast sodium 10 mg Tablet PO (08:16)
[2023-06-26] MEDS: atorvastatin 40 mg Tablet 20 MG PO (08:16)
[2023-06-26] MEDS: apixaban 5 mg Tablet 2.5 MG PO (08:16)
[2023-06-26] MEDS: iron polysaccharide complex 150 mg Capsule PO (08:16)
[2023-06-26] MEDS: calcium carb-vit d 600mg/400unit 1 Tablet 1 EACH PO (08:16)
[2023-06-26] MEDS: multivitamin therapeutic Tablet 1 TAB PO (08:17)
[2023-06-26] MEDS: levothyroxine 150 mcg Tablet PO (08:17)
[2023-06-26] MEDS: chlorhexidine gluconate 0.12% Btl 473 mL 30 ML MUCOUS MEM (08:19)
[2023-06-26] MEDS: mupirocin oint 22 gm 1 APPLIC NASAL (08:22)
--- NOTE | 2023-06-26 10:14 | PM.PN ---
Subjective Subjective: Kristy reports she is doing okay this morning. Some pain in the leg which caused some difficulty sleeping last night. No shortness of breath or chest discomfort. Medications: Reviewed: Yes Vitals/I&O/Wt Last Vital Signs Temp 97.6 F 06/26/23 08:24 Pulse 65 06/26/23 08:24 Resp 17 06/26/23 08:24 BP 130/65 06/26/23 08:24 Pulse Ox 95 06/26/23 08:24 O2 Del Method Room Air 06/26/23 07:47 06/25/23 06/26/23 06/26/23 22:59 06:59 14:59 Intake Total 1538.333 / 2165.333 150 / 2315.333 1240 / 1240 Output Total 900 / 1950 Balance 638.333 / 215.333 150 / 496.518 0650 / 1240 Physical Exam Narrative: General exam no distress Neck is supple no lymphadenopathy thyromegaly Cardiovascular regular rate and rhythm, no murmur Lungs clear Abdomen is soft, positive bowel sounds. No obvious organomegaly Extremities no cyanosis clubbing or edema. Right lower extremity/knee with dressing. Distal cap refill intact. No foot drop Urinary Catheter Management: Kan: Cath Placed During This Visit: yes, but has since been removed by the nurse Reason for Continuing Indwelling Catheter: Decision to DC Catheter Urinary Catheter Date of Insertion: 06/25/23 Urinary Catheter Time of Insertion: 07:54 Date Urinary Catheter Removed: 06/25/23 Time Urinary Catheter Discontinued: 18:14 Data 06/26/23 04:09 06/26/23 04:09 A&P Assessment and plan (1) Osteoarthritis of right knee: Postoperative day #1 status post knee replacement Mild acute postoperative blood loss anemia. No need for transfusion Continue Eliquis for DVT prophylaxis Qualifiers: Osteoarthritis type: primary Qualified Code(s): M17.11 - Unilateral primary osteoarthritis, right knee (2) Hypertension: Continue home medications Qualifiers: Hypertension type: primary hypertension Qualified Code(s): I10 - Essential (primary) hypertension Plan Past medical history reports acute [place] in 2010. I clarified this with the patient. She states she was told she had a myocardial infarction based on the abnormal EKG pattern. Investigation then occurred, and she reports she was told she was healthy. It sounds like this was a nuclear stress test. She has not had any chest discomfort since and she believes this was related to her shingles. I will obtain an EKG for baseline. Other medical problems as outlined in past medical history Baseline EKG demonstrated poor R wave progression, no acute changes Thank you for this consultation Stable for discharge from a medicine standpoint when okay from an orthopedic standpoint Attestations Medical Necessity Statement*: As per primary Coding Level of Care Code Acute Code for [facility] Fwd Diagnoses Osteoarthritis of right knee M17.11 Osteoarthritis type: primary Hypertension I10 Hypertension type: primary hypertension
--- NOTE | 2023-06-26 10:36 | PC.CHAP ---
Pastoral Care Encounter/Spiritual Assessment Type of Contact [] Declined clinic office assistant visit [] Patient/Family/Request visit [] Outpatient visit [] Follow-up visit [] Physician referral [] Code/Alert [x] Routine visit [] Staff referral [] Actively dying [] Patient sleeping [] Family support [] [] Out of room [] Palliative care [] [x] Receiving care in room [] Pre-surgical visit [] Trauma [] Long length of stay [] ICU visit [] Other: Relational/Emotional Strength [x] Patient feels connected with others/family/visitors/staff [] Distress [] Loneliness/isolation [] Abandonment Spirituality of Patient [x] Person of Ethel [] Attends Mandaen of their Ethel [x] Believes in Prayer [] Reads Bible or Lutheran materials [] There are Spiritual issues to be addressed Yard Switch Operator Interventions [x] Prayer [x] Active listening [x] Non-anxious presence [x] Spiritual/emotional support [] Crisis/trauma care [x] Spiritual counseling [] Bereavement support [] Provided bereavement packet [] Provided Bible/devotional materials [] Provided toy/stuffed animal, coloring book to patient or family member [] Provided Communion [] Anointing/[place] [] Salvation [x] Completed spiritual assessment [] Other: Impact on Illness or Injury [] Angry [] Fearful [] Anxious [] Often cries [] Exhaustion [] Unable to work [] Unable to attend advent [] Unable to walk/stand [] Unable to read [] Unable to drive [] Unable to eat/drink [] Unable to sleep [] Unable to be with family [] Patient intubated [] Other: Summary knee proceduer some rehab frome is going home Time spent with patient 10 mins
--- NOTE | 2023-06-26 12:30 | PM.DCS ---
Discharge Providers Date of Admission: 06/25/23 09:07 Date of Discharge: June 29, 2023 Attending Provider at Admission: Alexander Chance DO Attending Provider at Discharge: Alexander Chance DO Consults: Dr. Chacon Primary Care Provider: Christiano Miller MD Diagnoses at Discharge Discharge Diagnosis (1) Osteoarthritis of right knee: Status: Resolved Qualifiers: Osteoarthritis type: primary Qualified Code(s): M17.11 - Unilateral primary osteoarthritis, right knee (2) Hypertension: Status: Acute Qualifiers: Hypertension type: primary hypertension Qualified Code(s): I10 - Essential (primary) hypertension Reason for Visit Reason for Visit: M17.11 Brief History: Right total knee arthroplasty [facility] robotic assisted Hospital Course Hospital Course Patient presented to the preoperative holding area with plan for right total knee arthroplasty after patient has been worked up in the outpatient setting for failed conservative treatment of right knee degenerative joint disease.? Once cleared by anesthesia for surgery patient subsequently was taken back to the operative suite? underwent? anesthesia per anesthesia department and then subsequently underwent a right total knee arthroplasty.? Procedure was performed without any complications patient was taken to PACU in stable condition patient? recovered well in PACU and then was admitted to the floor postoperatively internal medicine was consulted and on board for medical management and assistance with care.? Patient received appropriate PT/OT, postoperative antibiotics, postoperative TXA, pain control, postoperative DVT prophylaxis.? Elevation and ice.? Patient encouraged for knee range of motion allowed weightbearing as tolerated to the right lower extremity.? Dressing was changed as needed, labs were monitored daily.?? Patient recovered well postoperatively and worked well and progressed well with therapy.? It was determined on postoperative day 1 the patient was stable for discharge.? Patient was comfortable with discharge and plan was discharged home.? Patient received appropriate discharge instructions as well as pain medication and DVT prophylaxis postoperatively.? Given appropriate instructions for? dressing management.? Patient will follow-up with Dr. Chance/orthopedics in the office in 2 weeks.? All questions answered.? Understand if there is any issues questions or concerns and contact the office. Physical Exam Narrative: Patient seen and examined. Dressing to the right lower extremity is clean dry and intact, dressing left on in place. Patient is able to wiggle toes plantarflex and dorsiflex ankle sensations intact to light touch distally. Distal pulses are palpable toes warm well-perfused brisk capillary refill less than 2 seconds. Compartments are soft compressible. No posterior calf tenderness palpation. Decreased knee range of motion secondary to dressing and pain. Urinary Catheter Management: Kan: Cath Placed During This Visit: yes, but has since been removed by the nurse Reason for Continuing Indwelling Catheter: Decision to DC Catheter Urinary Catheter Date of Insertion: 06/25/23 Urinary Catheter Time of Insertion: 07:54 Date Urinary Catheter Removed: 06/25/23 Time Urinary Catheter Discontinued: 18:14 Discharge Data Studies Completed and Pending Completed Studies During Hospitalization Category Date Time Status XR knee RT 1-2V [id number] Routine Exams 06/25/23 09:09 Completed Radiology Impressions Knee X-Ray 06/25/23 09:09 IMPRESSION: Normal appearing postoperative right total knee arthroplasty. Laboratory Results WBC 10.4 10^3/uL (4.0-10.0) H 06/26/23 04:09 RBC 3.71 10^6/uL (4.1-5.3) L 06/26/23 04:09 Hgb 10.8 g/dL (11.5-15.3) L 06/26/23 04:09 Hct 34.2 % (37.0-47.0) L 06/26/23 04:09 MCV 92.2 fl (81-99) 06/26/23 04:09 MCH 29.1 pg (28.0-34.0) 06/26/23 04:09 MCHC 31.6 g/dL (30.0-36.0) 06/26/23 04:09 RDW 15.1 % (12.1-15.1) 06/26/23 04:09 Plt Count 276 10^3/cmm (130-400) 06/26/23 04:09 MPV 8.9 fL (7.4-10.4) 06/26/23 04:09 Neut % (Auto) 77.4 % 06/26/23 04:09 Lymph % (Auto) 15.7 % 06/26/23 04:09 [place] % (Auto) 6.0 % 06/26/23 04:09 Eos % (Auto) 0.0 % 06/26/23 04:09 Baso % (Auto) 0.2 % 06/26/23 04:09 Neut # (Auto) 8.06 10^3/uL (1.8-7.7) H 06/26/23 04:09 Lymph # (Auto) 1.6 10^3/uL (0.8-4.8) 06/26/23 04:09 [place] # (Auto) 0.6 10^3/uL (0.2-0.9) 06/26/23 04:09 Eos # (Auto) 0.0 10^3/uL (0.0-0.8) 06/26/23 04:09 Baso # (Auto) 0.0 10^3/uL (0.0-0.1) 06/26/23 04:09 Nucleated RBC % (auto) 0 % 06/26/23 04:09 Nucleated RBCs # 0.0 /100WBC 06/26/23 04:09 Sodium 139 mmol/L (136-145) 06/26/23 04:09 Potassium 4.3 mmol/L (3.5-5.1) 06/26/23 04:09 Chloride 105 mmol/L (98-107) 06/26/23 04:09 Carbon Dioxide 24 mmol/L (22-29) 06/26/23 04:09 Anion Gap 14.3 (5-19) 06/26/23 04:09 BUN 11 mg/dL (8-23) 06/26/23 04:09 Creatinine 0.7 mg/dL (0.5-0.9) 06/26/23 04:09 GFR Calculation 85.1 mL/min (90-130) L 06/26/23 04:09 Glucose 164 mg/dL (65-115) H 06/26/23 04:09 Calculated Osmolality 291 mOsm/kg (285-295) 06/26/23 04:09 Calcium 9.1 mg/dL (8.5-10.5) 06/26/23 04:09 Urine Color Yellow (Yellow) 06/18/23 10:07 Urine Appearance Sl hazy (CLEAR) A 06/18/23 10:07 Urine pH 6 (5-7) 06/18/23 10:07 Ur Specific [place] 1.015 (1.005-1.030) 06/18/23 10:07 Urine Protein Neg (Negative) 06/18/23 10:07 Urine Glucose (UA) Norm (Normal) 06/18/23 10:07 Urine Ketones Negative (Negative) 06/18/23 10:07 Urine Blood Neg (Negative) 06/18/23 10:07 Urine Nitrate Negative (Negative) 06/18/23 10:07 Urine Bilirubin Neg (Negative) 06/18/23 10:07 Urine Urobilinogen Norm mg/dL (Negative) 06/18/23 10:07 Ur Leukocyte Esterase Negative (Negative) 06/18/23 10:07 Urine RBC 0-4 /hpf (0-2) H 06/18/23 10:07 Urine WBC 0-4 /hpf (0-5) H 06/18/23 10:07 Ur Squamous Epith Cells 0-4 /hpf (0-5) H 06/18/23 10:07 Amorphous Sediment Not Reportable 06/18/23 10:07 Urine Bacteria None /hpf (NONE) 06/18/23 10:07 Urine Mucus None /hpf 06/18/23 10:07 Blood Type A Positive 06/25/23 06:13 Rho(D) Type Positive 06/25/23 06:13 Antibody Screen Negative 06/25/23 06:13 Vitals Last Vital Signs Temp 97.8 F 06/26/23 14:48 Pulse 54 L 06/26/23 14:48 Resp 16 06/26/23 14:48 BP 120/74 06/26/23 14:48 Pulse Ox 97 06/26/23 14:48 O2 Del Method Room Air 06/26/23 07:47 Discharge Plan Discharge Patient Disposition: Home Condition: Stable Prescriptions: New Eliquis 2.5 mg tablet 2.5 mg PO BID 14 Days Qty: 28 0RF oxycodone 5 mg tablet 5 mg PO Q6H PRN (Reason: pain postop) 7 Days Qty: 28 0RF Calcium 600 + D(3) 600 mg-10 mcg (400 unit) tablet 1 tab PO DAILY 30 Days Qty: 30 0RF Continued levalbuterol tartrate 45 mcg/actuation HFA aerosol inhaler 2 inh inhalation Q6H PRN (Reason: Shortness Of Breath) montelukast 10 mg tablet See Rx Instructions .ROUTE .COMPLEX Qty: 30 11RF Dose Instruction: TAKE 1 TABLET BY MOUTH DAILY Rx Instructions: TAKE 1 TABLET BY MOUTH DAILY cyclobenzaprine 10 mg tablet 10 mg PO TID PRN (Reason: muscle spasm) Qty: 14 0RF levothyroxine 150 mcg tablet See Rx Instructions .ROUTE .COMPLEX Qty: 90 3RF Dose Instruction: TAKE 1 TABLET BY MOUTH EVERY DAY Rx Instructions: TAKE 1 TABLET BY MOUTH EVERY DAY multivitamin Tablet 1 tab PO DAILY fluticasone propion-salmeterol [Advair Diskus] 250-50 mcg/dose Blister With Device 1 inh INHALATION BID PRN (Reason: unknown) cyanocobalamin (vitamin B-12) [Vitamin B-12] 1,000 mcg Tablet 1,000 mcg PO QAM calcium polycarbophil [Fiber (calcium polycarbophil)] 625 mg Tablet 1,250 mg PO QAM atorvastatin 20 mg tablet 20 mg PO DAILY Rx Instructions: TAKE 1 TABLET BY MOUTH EVERY DAY Discontinued ondansetron 4 mg tablet,disintegrating 4 mg PO Q8H PRN (Reason: nausea and vomiting) Qty: 30 0RF oxycodone 5 mg tablet 5 mg PO Q4H PRN (Reason: pain) 7 Days Qty: 30 0RF No Action atenolol 50 mg tablet See Rx Instructions .ROUTE .COMPLEX Qty: 90 3RF Dose Instruction: TAKE 1 TABLET BY MOUTH EVERY DAY Rx Instructions: TAKE 1 TABLET BY MOUTH EVERY DAY atenolol 50 mg tablet See Rx Instructions .ROUTE .COMPLEX Qty: 90 3RF Dose Instruction: TAKE 1 TABLET BY MOUTH EVERY DAY Rx Instructions: TAKE 1 TABLET BY MOUTH EVERY DAY Discharge Orders: Discharge Order (Routine); Ordered 06/26/23 Ordered By: Alexander Chance Other Ambulatory Orders: Physical Therapy Eval and Treat Outpatient (Order) Timeframe: 3 Days Facility: [facility] - Location: Physical Therapy Ordered By: Alexander Chance Referrals: Outpatient Therapy [facility] [Other] (Outpatient therapy has been arranged for you at the [facility]. If you have any questions please contact them at [phone].) Alexander Chance DO [Physician] - 07/08/23 1:15 pm ( ) Christiano Miller MD [Primary Care Provider] - 07/01/23 1:00 pm Discharge Diet: Advance as tolerated Discharge Activity: Increase activity as tolerated, Use walker/crutches as instructed and As per PT/OT instructions Patient Instructions: Oxycodone, Rapid Release (By mouth), Ondansetron (By mouth), Calcium Supplement (By mouth), Apixaban (By mouth), Knee Arthroscopy (DC), Opioid Safety Activity Restrictions/Additional Instructions: Orthopedic discharge instructions: Patient may weight-bear as tolerated to the right lower extremity Utilize walker or assisted walking device as needed for stability and assistance Ice as needed for pain and swelling Encourage gentle knee range of motion Take pain medication as prescribed Take antinausea medication as needed Supplement with Citracal vitamin D for bone health and healing Take Eliquis (blood thinner) as prescribed to prevent blood clots postoperatively Keep incision clean dry and intact Leave dressing on in place for 7 days after this may remove bandage and okay to shower with warm soapy water pat dry and redress with a dry dressing (note there will be glued mesh over the incision this should be left on and in place until your follow-up as this is what is keeping the skin edges healing together) Follow-up with Dr. Chance in the office in 2 weeks Contact the office for any questions or concerns refill for pain medications. Discharge Attestations Time Spent in Discharge Care*: less than 30 min Quality Metrics Clinical Quality Measures [ No reported AMI, CVA or VTE this stay] Coding Level of Care Code Acute Code for Chg Fwd Diagnoses Osteoarthritis of right knee M17.11 Osteoarthritis type: primary Hypertension I10 Hypertension type: primary hypertension
--- NOTE | 2023-06-26 14:08 | PC.NURSE ---
patient verbalized understanding of discharge instructions, home medications, and follow up appointments.
== END 2023-06-26 14:49 | disposition home or self-care (01) ==
LOC: MEDSURG 13:43
PROVIDERS: Admitting Provider Student in an Organized Health Care Education/Training Program; PCP Family Medicine; Visit Provider Student in an Organized Health Care Education/Training Program
PROC: 8E0Y0CZ Robotic Assisted Procedure of Lower Extremity, Open Approach (ICD-10-PCS; CPT 27447; principal; 2023-06-25 07:00)
DX: M17.11 Unilateral primary osteoarthritis, right knee (principal); M25.761 Osteophyte, right knee; I10 Essential (primary) hypertension; I25.2 Old myocardial infarction; E78.5 Hyperlipidemia, unspecified; E03.9 Hypothyroidism, unspecified; J45.20 Mild intermittent asthma, uncomplicated; Z79.899 Other long term (current) drug therapy; Z96.652 Presence of left artificial knee joint
CPT/HCPCS: 27447; 36415; 51702; 73560; 80048; 81001; 85025; 86850; 86900; 93005; 94640; 97110; 97116; 97161; 97165; C1776; G0378; J0131; J0171; J0690; J1170; J1885; J2704; J2795; J3010; J7030; J7120; J7626

== ENCOUNTER 2023-07-02 07:43 | Outpatient (RCR) | payer BC, SELFPAY | END 2023-07-24 23:59 | disposition home or self-care (01) | LOC: SPT 07:43 | PROVIDERS: PCP Family Medicine; Visit Provider Student in an Organized Health Care Education/Training Program | DX: M17.11 Unilateral primary osteoarthritis, right knee (principal) | CPT/HCPCS: 97110; 97161; G0283 ==

== ENCOUNTER → 2023-07-08 13:22 | Outpatient (BNVA) | payer BC, SELFPAY | PROVIDERS: PCP Family Medicine; Visit Provider Student in an Organized Health Care Education/Training Program | DX: M17.11 Unilateral primary osteoarthritis, right knee (principal); Z96.651 Presence of right artificial knee joint | CPT/HCPCS: 73560; 73565 ==

== ENCOUNTER 2023-07-25 06:00 | Outpatient (RCR) | payer BC, SELFPAY | END 2023-08-23 23:59 | disposition home or self-care (01) | LOC: SPT 06:00 | PROVIDERS: PCP Family Medicine; Visit Provider Student in an Organized Health Care Education/Training Program | DX: M17.11 Unilateral primary osteoarthritis, right knee (principal) | CPT/HCPCS: 97110; G0283 ==

== ENCOUNTER → 2023-08-21 08:35 | Outpatient (BNVA) | payer BC, SELFPAY | PROVIDERS: PCP Family Medicine; Visit Provider Student in an Organized Health Care Education/Training Program | DX: Z96.651 Presence of right artificial knee joint (principal) | CPT/HCPCS: 73560; 73565 ==

== ENCOUNTER 2023-08-24 06:00 | Outpatient (RCR) | payer BC, SELFPAY | END 2023-09-23 23:59 | disposition home or self-care (01) | LOC: SPT 06:00 | PROVIDERS: PCP Family Medicine; Visit Provider Student in an Organized Health Care Education/Training Program | DX: M17.11 Unilateral primary osteoarthritis, right knee (principal) | CPT/HCPCS: 97110; 97140; G0283 ==

== ENCOUNTER 2023-09-24 06:00 | Outpatient (RCR) | payer BC, SELFPAY | END 2023-10-23 23:59 | disposition home or self-care (01) | LOC: SPT 06:00 | PROVIDERS: PCP Family Medicine; Visit Provider Student in an Organized Health Care Education/Training Program | DX: M17.11 Unilateral primary osteoarthritis, right knee (principal) | CPT/HCPCS: 97110; 97140; G0283 ==

== ENCOUNTER 2023-10-24 06:00 | Outpatient (RCR) | payer BC, SELFPAY | END 2023-11-23 23:59 | disposition home or self-care (01) | LOC: SPT 06:00 | PROVIDERS: PCP Family Medicine; Visit Provider Student in an Organized Health Care Education/Training Program | DX: M17.11 Unilateral primary osteoarthritis, right knee (principal) | CPT/HCPCS: 97110 ==

== ENCOUNTER → 2024-05-12 11:14 | Outpatient (BNVA) | payer BC, SELFPAY | PROVIDERS: PCP Family Medicine; Visit Provider Family Medicine | DX: Z12.31 Encounter for screening mammogram for malignant neoplasm of breast (principal); I10 Essential (primary) hypertension; E78.5 Hyperlipidemia, unspecified; E03.9 Hypothyroidism, unspecified | CPT/HCPCS: 80053; 80061; 82607; 84443; 85025 ==

== ENCOUNTER 2024-05-24 13:26 | Outpatient (CLI) | payer BC, SELFPAY ==
--- NOTE | 2024-05-24 13:30 | XR_ITS ---
WS: [id number] DEXA (DUAL ENERGY X-RAY ABSORPTIOMETRY) Bone mineral density was performed using a [employer] machine. HISTORY: screening COMPARISON: None available. Left forearm BMD: 0.910 g/cm2. T score: 0.4 Z score: 1.5 Total hip BMD: Left: 0.802 g/cm2. T score: -1.6 Z score: -1.4 Right: 0.806 g/cm2. T score: -1.6 Z score: -1.4 10 year probability of a major osteoporotic fracture is 9.1%. XR/XR DEXA axial skeleton* [id number] IMPRESSION: OSTEOPENIA based upon the WHO classification for females.
--- NOTE | 2024-05-24 14:00 | MM_ITS ---
WS: [id number] SCREENING DIGITAL TOMOSYNTHESIS MAMMOGRAM WITH CAD HISTORY: screening COMPARISON: 11/20/2022, 12/19/2020 Bilateral CC and MLO with tomosynthesis views submitted. Synthetic mammography reviewed. Computer aid ed detection analyzed. Breast composition: The breasts are almost entirely fatty. No suspicious masses, microcalcifications or architectural distortion. MM/[place] [id number] IMPRESSION: BI-RADS: 1-Negative FOLLOW UP: 1 Year Follow-up
== END 2024-05-24 13:27 | disposition home or self-care (01) ==
PROVIDERS: PCP Family Medicine; Visit Provider Family Medicine
DX: Z12.31 Encounter for screening mammogram for malignant neoplasm of breast (principal); Z12.2 Encounter for screening for malignant neoplasm of respiratory organs; R92.313 Mammographic fatty tissue density, bilateral breasts; M85.80 Other specified disorders of bone density and structure, unspecified site
CPT/HCPCS: 77063; 77067; 77080; 80053; 80061; 82607; 84443; 85025

== ENCOUNTER → 2024-07-06 14:59 | Outpatient (BNVA) | payer BC, SELFPAY | PROVIDERS: PCP Family Medicine; Visit Provider Student in an Organized Health Care Education/Training Program | DX: Z96.651 Presence of right artificial knee joint (principal); Z47.1 Aftercare following joint replacement surgery | CPT/HCPCS: 73560; 73565 ==

== ENCOUNTER 2024-07-12 11:59 | Outpatient (RCR) | payer BC, SELFPAY | END 2024-07-24 23:59 | disposition home or self-care (01) | LOC: SPT 11:59 | PROVIDERS: PCP Family Medicine; Visit Provider Student in an Organized Health Care Education/Training Program | DX: Z47.1 Aftercare following joint replacement surgery (principal); Z96.651 Presence of right artificial knee joint | CPT/HCPCS: 97161 ==

== ENCOUNTER → 2024-07-19 13:31 | Outpatient (BNVA) | payer BC, SELFPAY | PROVIDERS: PCP Family Medicine; Visit Provider Clinical Nurse Specialist Adult Health | DX: R30.0 Dysuria (principal) | CPT/HCPCS: 81000 ==

== ENCOUNTER 2024-07-29 12:28 | Outpatient (RCR) | payer BC, SELFPAY | END 2024-08-23 23:59 | disposition home or self-care (01) | LOC: SPT 12:28 | PROVIDERS: PCP Family Medicine; Visit Provider Student in an Organized Health Care Education/Training Program | DX: Z96.651 Presence of right artificial knee joint (principal); Z98.890 Other specified postprocedural states; R26.89 Other abnormalities of gait and mobility | CPT/HCPCS: 97110 ==

== ENCOUNTER 2024-08-24 06:00 | Outpatient (RCR) | payer BC, SELFPAY | END 2024-09-23 23:59 | disposition home or self-care (01) | LOC: SPT 06:00 | PROVIDERS: PCP Family Medicine; Visit Provider Student in an Organized Health Care Education/Training Program | DX: Z47.1 Aftercare following joint replacement surgery (principal); Z96.651 Presence of right artificial knee joint | CPT/HCPCS: 97110 ==

== ENCOUNTER 2025-04-06 16:24 | Outpatient (CLI) | payer BC, SELFPAY ==
--- NOTE | 2025-04-06 17:15 | CTR_ITS ---
PROCEDURE INFORMATION: Exam: CT Abdomen And Pelvis With Contrast Exam date and time: 04/06/2025 5:22 PM Age: 64 years old Clinical indication: Other: Hernia; Prior surgery; Surgery date: 6+ months; Surgery type: Hyst, appy, back; Additional info: Hernia, iv contrast only TECHNIQUE: Imaging protocol: Computed tomography of the abdomen and pelvis with contrast. Radiation optimization: All CT scans at this facility use at least one of these dose optimization techniques: automated exposure control; mA and/or kV adjustment per patient size (includes targeted exams where dose is matched to clinical indication); or iterative reconstruction. Contrast material: OMNI 350; Contrast volume: 100 ml; Contrast route: INTRAVENOUS (IV); COMPARISON: NM hepatobiliary w phar* [id number] 11/29/2022 8:00 AM RADIATION DOSE METRICS: Total DLP (mGy-cm): 816.38 FINDINGS: Liver: Normal. No mass. Gallbladder and biliary ducts: Normal. No calcified stones. No ductal dilation. Pancreas: Normal. No ductal dilation. Spleen: Normal. No splenomegaly. Adrenal glands: Normal. No mass. Kidneys and ureters: Normal. No hydronephrosis. Stomach and bowel: Unremarkable. No obstruction. No mucosal thickening. Appendix: No evidence of appendicitis. Intraperitoneal space: Unremarkable. No free air. No significant fluid collection. Vasculature: Unremarkable. No abdominal aortic aneurysm. Lymph nodes: There is very mild stranding of the mesenteric fat with a few normal-sized lymph nodes. Urinary bladder: Low-lying urinary bladder. Reproductive: Status post hysterectomy. Bones/joints: Unremarkable. No acute fracture. Soft tissues: Unremarkable. CT/CT abdomen pelvis w con* [id number] IMPRESSION: Very mild stranding of the mesenteric fat which may represent very mild panniculitis.
[2025-04-06 17:18] LABS: Blood Urea Nitrogen 8 mg/dL (8-23); Glomerular Filtration Rate 72.4 mL/min (90-130)
[2025-04-06] MEDS: iohexol 350 mg/mL 500 mL Btl (per mL) IV (17:46)
== END 2025-04-06 16:25 | disposition home or self-care (01) ==
LOC: RAD 16:26
PROVIDERS: PCP Family Medicine; Visit Provider Student in an Organized Health Care Education/Training Program
DX: K46.9 Unspecified abdominal hernia without obstruction or gangrene (principal); R93.89 Abnormal findings on diagnostic imaging of other specified body structures; Z90.710 Acquired absence of both cervix and uterus
CPT/HCPCS: 74177; 82565; 84520

== ENCOUNTER → 2025-06-01 08:45 | Outpatient (BNVA) | payer BC, SELFPAY | PROVIDERS: PCP Family Medicine; Visit Provider Family Medicine | DX: I10 Essential (primary) hypertension (principal); E78.5 Hyperlipidemia, unspecified; E03.9 Hypothyroidism, unspecified | CPT/HCPCS: 80053; 80061; 84439; 84443; 85025 ==

== ENCOUNTER 2025-06-07 11:07 | Outpatient (CLI) | payer BC, SELFPAY ==
--- NOTE | 2025-06-07 11:13 | MM_ITS ---
WS: [id number] BILATERAL 3D TOMOSYNTHESIS DIGITAL SCREENING MAMMOGRAPHY WITH CAD CLINICAL INFORMATION: screening HISTORY: Screening mammogram. No current complaints. COMPARISON: 2023 and multiple mammograms dating back to 2012 TECHNIQUE: Bilateral CC and MLO views. FINDINGS: Scattered fibroglandular densities bilaterally. A few incidental punctate calcifications. Clustered area of calcifications with some parenchymal fibrosis near the 12 o'clock position RIGHT breast. Recommend further evaluation with spot magnification views. LEFT breast is unremarkable and unchanged. MM/MM [facility] tomosynthesis [id number] IMPRESSION: DENSITY: There are scattered areas of fibroglandular density. BI-RADS: 0 - Incomplete: Need additional imaging evaluation. FOLLOW UP: Need Additional Imaging Recommend spot magnification views calcifications RIGHT breast.
== END 2025-06-07 11:08 | disposition home or self-care (01) ==
LOC: RAD 11:08
PROVIDERS: PCP Family Medicine; Visit Provider Family Medicine
DX: Z12.31 Encounter for screening mammogram for malignant neoplasm of breast (principal); N60.31 Fibrosclerosis of right breast
CPT/HCPCS: 77063; 77067

== ENCOUNTER 2025-06-16 08:37 | Outpatient (CLI) | payer BC, SELFPAY ==
--- NOTE | 2025-06-16 09:00 | MM_ITS ---
WS: [id number] RIGHT 3D TOMOSYNTHESIS DIGITAL MAMMOGRAPHY WITH CAD CLINICAL INFORMATION: abnormal mammo HISTORY: Calcifications COMPARISON: 06/07/2025 TECHNIQUE: 3 views of the right breast were obtained. FINDINGS: Scattered fibroglandular densities of the right breast. Spot magnification views. Very faint amorphous calcifications have a benign appearance on the spot modification views. Recommend return to annual screening mammography. MM/MM diag RT tomosynthesis [id number] IMPRESSION: DENSITY: There are scattered areas of fibroglandular density. BI-RADS: 2 - Benign. FOLLOW UP: 1 Year Follow-up Recommend return to annual screening mammography.
== END 2025-06-16 08:38 | disposition home or self-care (01) ==
LOC: RAD 08:39
PROVIDERS: PCP Family Medicine; Visit Provider Family Medicine
DX: R92.8 Other abnormal and inconclusive findings on diagnostic imaging of breast (principal)
CPT/HCPCS: 77061; G0279

== ENCOUNTER → 2025-07-27 10:36 | Outpatient (BNVA) | payer BC, SELFPAY | PROVIDERS: PCP Family Medicine; Visit Provider Family Medicine | DX: E03.9 Hypothyroidism, unspecified (principal); I10 Essential (primary) hypertension; E78.5 Hyperlipidemia, unspecified | CPT/HCPCS: 80053; 80061; 84439; 84443; 85025 ==

== ENCOUNTER → 2025-10-26 12:53 | Outpatient (BNVA) | payer BC, SELFPAY | PROVIDERS: PCP Family Medicine; Visit Provider Student in an Organized Health Care Education/Training Program | DX: Z96.651 Presence of right artificial knee joint (principal); Z48.89 Encounter for other specified surgical aftercare | CPT/HCPCS: 73560; 73565 ==